=== PATIENT | male | born 1975 | race Caucasian/White ===

== ENCOUNTER 2021-06-22 19:13 | Inpatient (IN) | payer OTHER ==
[~2021-06-22] VITALS: Ht 182.9 cm; Wt 90.4 kg
[~2021-06-22 19:13] MED LIST: ALBU90OI INH; Bactrim 400-801 EACH PO; CEPH500 PO; CLIN150 PO; CLIN300 PO; Cleocin HCl300 MG PO; IBUP600 PO; NAPR500 PO; Naprosyn500 MG PO; RXCLIN PO; SULTRIDS PO; TENO300 PO; TRAM50 PO
[2021-06-22 20:23] LABS: BASOPHILS ABSOLUTE AUTO 0.03 K/mm3 (0.00-0.23); BASOPHILS PERCENT AUTO 1 % (0-2); EOSINOPHILS ABSOLUTE AUTO 0.23 K/mm3 (0.00-0.68); EOSINOPHILS PERCENT AUTO 5 % (0-6); Hematocrit 34.8 % (37.0-53.0); Hemoglobin 10.6 g/dL (13.5-17.5); IMMATURE GRAN ABSOLUTE AUTO 0.01 K/mm3 (0.00-0.10); IMMATURE GRAN PERCENT AUTO 0 % (0-1); LYMPHOCYTES ABSOLUTE AUTO 1.61 K/mm3 (0.84-5.20); LYMPHOCYTES PERCENT AUTO 33 % (21-46); MONOCYTES ABSOLUTE AUTO 0.43 K/mm3 (0.16-1.47); MONOCYTES PERCENT AUTO 9 % (4-13); Mean Corpuscular HGB 20.3 pg (26.0-34.0); Mean Corpuscular HGB Conc 30.5 g/dL (31.5-36.5); Mean Corpuscular Volume 67 fL (80-100); NEUTROPHILS ABSOLUTE AUTO 2.53 K/mm3 (1.96-9.15); NEUTROPHILS PERCENT AUTO 52 % (41-73); Platelet Count 164 K/mm3 (150-400); RDW Coefficient Variation 21.1 % (11.7-14.2); RDW Standard Deviation 48.3 fL (35.1-46.3); Red Blood Cell Count 5.23 M/mm3 (4.30-5.90); White Blood Cell Count 4.84 K/mm3 (4.00-11.30)
[2021-06-22 20:24] LABS: Mean Platelet Volume 10.4 fL (9.1-12.4)
[2021-06-22 20:41] LABS: Alanine Aminotransfer (ALT/SGP 40 U/L (12-78); Albumin, Blood 3.4 g/dL (3.4-5.0); Albumin/Globulin Ratio 0.9 (0.8-1.8); Alk Phos 74 U/L (50-136); Anion Gap 5 mmol/L (6-16); Aspartate Aminotrans (AST/SGOT 37 U/L (12-37); Bilirubin, Total 0.7 mg/dL (0.1-1.0); Blood Urea Nitrogen 19 mg/dL (8-24); Bun/Creatinine Ratio 25.1 (12.0-20.0); CO2, Blood 26 mmol/L (21-32); Calcium, Blood 8.5 mg/dL (8.5-10.1); Chloride, Blood 105 mmol/L (98-108); Creatinine, Blood 0.76 mg/dL (0.60-1.20); Globulin, Blood 3.7 g/dL (2.2-4.0); Glomerular Filtration Rate >60 (60-); Glucose, Blood 97 mg/dL (70-99); Potassium, Blood 3.4 mmol/L (3.5-5.5); Sodium, Blood 136 mmol/L (136-145); Total Protein, Blood 7.1 g/dL (6.4-8.2)
[2021-06-22 22:17] LABS: Source, Urine Clean Catch
[2021-06-22 22:28] LABS: Bilirubin, Urine Neg (Neg); Blood, Urine Neg (Neg); Glucose Qualitative, Urine Neg (Neg); Ketones, Urine Neg (Neg); Leukocyte Esterase, Urine 1+ (Neg); Nitrite, Urine Neg (Neg); Protein, Urine 2+ (Neg); Urobilinogen, Urine 1+ (Normal); pH, Urine 6.5 (5.0-8.0)
[2021-06-22 22:38] LABS: U Amphetamine Screen DETECTED; U Barbituate Screen Not Detected; U Benzodiazapine Screen Not Detected; U Buprenorphine Screen Not Detected; U Cannabinoids Screen Not Detected; U Cocaine Screen Not Detected; U Methadone Screen Not Detected; U Methamphetamine Screen DETECTED; U Opiates Screen Not Detected; U Oxycodone Screen Not Detected; U Phencyclidine Screen Not Detected; U Propoxyphene Screen Not Detected
[2021-06-22 22:39] LABS: Appearance, Urine Clear (Clear); Color, Urine Yellow (P-Yellow)
[2021-06-22 22:40] LABS: Bacteria Few /hpf; Red Blood Cells, Urine Not Seen /hpf (0-2); Squamous Epithelial Cells Few /hpf (Few)
[2021-06-23 05:49] LABS: BASOPHILS ABSOLUTE AUTO 0.04 K/mm3 (0.00-0.23); BASOPHILS PERCENT AUTO 1 % (0-2); EOSINOPHILS ABSOLUTE AUTO 0.24 K/mm3 (0.00-0.68); EOSINOPHILS PERCENT AUTO 5 % (0-6); Hematocrit 35.2 % (37.0-53.0); Hemoglobin 10.4 g/dL (13.5-17.5); IMMATURE GRAN ABSOLUTE AUTO 0.01 K/mm3 (0.00-0.10); IMMATURE GRAN PERCENT AUTO 0 % (0-1); LYMPHOCYTES PERCENT AUTO 37 % (21-46); MONOCYTES ABSOLUTE AUTO 0.45 K/mm3 (0.16-1.47); MONOCYTES PERCENT AUTO 10 % (4-13); Mean Corpuscular HGB Conc 29.5 g/dL (31.5-36.5); Mean Corpuscular Volume 68 fL (80-100); NEUTROPHILS ABSOLUTE AUTO 2.13 K/mm3 (1.96-9.15); NEUTROPHILS PERCENT AUTO 47 % (41-73); Platelet Count 165 K/mm3 (150-400); RDW Coefficient Variation 21.2 % (11.7-14.2); RDW Standard Deviation 49.2 fL (35.1-46.3); White Blood Cell Count 4.57 K/mm3 (4.00-11.30)
[2021-06-23 06:02] LABS: Mean Platelet Volume 10.3 fL (9.1-12.4)
[2021-06-23 06:10] LABS: Anion Gap 5 mmol/L (6-16); Blood Urea Nitrogen 15 mg/dL (8-24); Bun/Creatinine Ratio 20.2 (12.0-20.0); CO2, Blood 26 mmol/L (21-32); Calcium, Blood 8.5 mg/dL (8.5-10.1); Chloride, Blood 107 mmol/L (98-108); Creatinine, Blood 0.74 mg/dL (0.60-1.20); Glomerular Filtration Rate >60 (60-); Glucose, Blood 92 mg/dL (70-99); Potassium, Blood 3.5 mmol/L (3.5-5.5); Sodium, Blood 138 mmol/L (136-145)
[2021-06-23 06:22] LABS: CHOL/HDL RATIO 3.3; Cholesterol 85 mg/dL (50-200); HDL Cholesterol 26 mg/dL (>39); LDL/HDL RATIO 1.8; Low Density Lipoprotein Chol 47 mg/dL (0-110); Triglycerides 58 mg/dL (30-160); Very Low Density Lipoprot Chol 11 mg/dL (6-32)
[2021-06-23 06:32] LABS: Percent Saturation 6.5 % (20.0-50.0)
--- NOTE | 2021-06-23 06:36 | NUR ---
SHIFT SUMMARY PATIENT ARRIVED TO ROOM 332 VIA STRETCHER AT 0115. HE IS ALERT AND ORIENTED X3, IS CONFUSED AND IMPULSIVE. COMPLAINS OF HIS RIGHT ARM HAVING BURNING PAIN. REQUIRES ONE PERSON ASSIST TO THE RESTROOM DUE TO LEFT SIDED WEAKNESS. BED IN LOWEST POSITION WITH WHEELS LOCKED AND ALARM ON. CALL LIGHT WITHIN REACH. REPORT GIVEN TO ONCOMING RN.
--- NOTE | 2021-06-23 14:34 | NUR ---
Per Dr. Kebede, patient choosing to leave AMA. By Dr. Kebede request, I scheduled Carter Mcgill for a hospital followup with Fabián. Appointment scheduled for Sunday, June 27, 2021 at 03:30 PM. I went to visit the patient in his room, he was working with the occupational therapist using a front wheeled walker. Patient agreeable to time and date of scheduled hospital follow up appointment. Also discussed his referrals and verified that his current cell phone number [phone] is a good contact number. I offered to order the patient a front wheeled walker before the patient leaves, he is agreeable to this. I contacted Chucky with [employer], who stated the walker would be delievered to the patient shortly. I also explained that home health will be ordered by Dr. Kebede, and that [facility] will be contacting him to set that up. Patient agreeable to services. His Girlfriend will be picking him up soon.
--- NOTE | 2021-06-23 16:48 | NUR ---
PT AWAKE AT START OF SHIFT, LYING HF WATCHING TV. PT WANTING TO GO HOME RIGHT AWAY. DR FRY TO TO SEE PT AND DISCUSS PLAN OF CARE. MRI OF HEAD AND SPINE TO BE DONE FIRST. PT TAKEN DOWN TO IMAGING VIA W/C AND RETURNED. PT THEN WANTING TO GO AMA. O/T HERE TO SEE PT. DR FRY ENCOURAGED PT TO WORK WITH O/T FIRST AND LEARN SOME THINGS THAT HE COULD USE AT HOME. PT WITH L SIDED WEAKNESS AND R ARM N/T AND BURNING. PT ABLE TO WORK WITH THERAPY AND AGREED THAT HE WOULD BENEFIT HAVING A FWW AT HOME. REPAIRER ENGINE PRODUCTION IN TO SEE PT AND DISCUSS PLAN OF CARE. REPAIRER ENGINE PRODUCTION ABLE TO OBTAIN A FWW AND HAVE IT DELIVERED HERE FOR PT TO TAKE HOME AT D/C. F/U APPOINTMENTS MADE FOR PT TO GO TO WELL BY C/M. PT CONTINUED TO INSIST ON GOING AMA. DR FRY AWARE AND TRIED TO ENCOURAGE PT TO STAY. PT REFUSING. RAMIN ORTEGA, DISCUSSED AMA SHEET WITH PT, WHO WISHED TO SIGN FORM. PT CALLED S/O TO COME AND TAKE HIM HOME. S/O ASSISTED PT OUT VIA W/C.
== END 2021-06-23 14:55 | disposition left against medical advice (07) | DRG 552 ==
LOC: ER 19:13 → MEDS 23:39 → ER 06-23 01:10 → MEDS 06-23 01:15
PROVIDERS: Emergency Medicine; Physician Assistant; Student in an Organized Health Care Education/Training Program; ADMIT Internal Medicine
DX: M48.02 Spinal stenosis, cervical region (principal); G93.40 Encephalopathy, unspecified; E87.6 Hypokalemia; Z21 Asymptomatic human immunodeficiency virus [HIV] infection status; F15.10 Other stimulant abuse, uncomplicated; D64.9 Anemia, unspecified; B19.20 Unspecified viral hepatitis C without hepatic coma; Z86.718 Personal history of other venous thrombosis and embolism; Z91.14 Patient's other noncompliance with medication regimen; Z86.73 Personal history of transient ischemic attack (TIA), and cerebral infarction without residual deficits; Z88.0 Allergy status to penicillin; Z98.890 Other specified postprocedural states; F17.210 Nicotine dependence, cigarettes, uncomplicated; Z66 Do not resuscitate; D63.8 Anemia in other chronic diseases classified elsewhere
CPT/HCPCS: 36415; 51701; 70450; 70551; 71046; 72125; 72141; 80048; 80053; 80061; 81001; 82728; 83540; 83550; 84484; 85025; 87086; 90686; 92610; 93005; 93010; 97110; 97112; 97165; 97535; 99285-25; A9270; G0008; J1650; J3480; J7030

== ENCOUNTER 2021-08-03 03:06 | Emergency (ER) | payer OTHER ==
[~2021-08-03] VITALS: Ht 182.9 cm; Wt 90.7 kg
[2021-08-03 04:18] LABS: BASOPHILS ABSOLUTE AUTO 0.06 K/mm3 (0.00-0.23); BASOPHILS PERCENT AUTO 1 % (0-2); EOSINOPHILS ABSOLUTE AUTO 0.32 K/mm3 (0.00-0.68); EOSINOPHILS PERCENT AUTO 7 % (0-6); Hematocrit 43.1 % (37.0-53.0); IMMATURE GRAN ABSOLUTE AUTO 0.01 K/mm3 (0.00-0.10); IMMATURE GRAN PERCENT AUTO 0 % (0-1); LYMPHOCYTES PERCENT AUTO 39 % (21-46); MONOCYTES ABSOLUTE AUTO 0.37 K/mm3 (0.16-1.47); MONOCYTES PERCENT AUTO 8 % (4-13); Mean Corpuscular HGB 22.4 pg (26.0-34.0); Mean Corpuscular HGB Conc 30.2 g/dL (31.5-36.5); Mean Corpuscular Volume 74 fL (80-100); NEUTROPHILS ABSOLUTE AUTO 1.94 K/mm3 (1.96-9.15); NEUTROPHILS PERCENT AUTO 44 % (41-73); Platelet Count 174 K/mm3 (150-400); RDW Coefficient Variation 27.7 % (11.7-14.2); RDW Standard Deviation 72.5 fL (35.1-46.3)
[2021-08-03 04:19] LABS: Mean Platelet Volume 9.8 fL (9.1-12.4)
[2021-08-03 04:29] LABS: Anion Gap 4 mmol/L (6-16); Blood Urea Nitrogen 17 mg/dL (8-24); Bun/Creatinine Ratio 26.9 (12.0-20.0); C-REACTIVE PROTEIN, EXT RANGE <0.290 mg/dL (0.000-0.300); CO2, Blood 29 mmol/L (21-32); Calcium, Blood 8.8 mg/dL (8.5-10.1); Chloride, Blood 105 mmol/L (98-108); Creatinine, Blood 0.63 mg/dL (0.60-1.20); Glomerular Filtration Rate >60 (60-); Glucose, Blood 112 mg/dL (70-99); Potassium, Blood 3.6 mmol/L (3.5-5.5); Sodium, Blood 138 mmol/L (136-145)
== END 2021-08-03 06:23 | disposition home or self-care (01) ==
LOC: ER 03:06
PROVIDERS: Student in an Organized Health Care Education/Training Program
DX: S93.402A Sprain of unspecified ligament of left ankle, initial encounter (principal); B20 Human immunodeficiency virus [HIV] disease; Z88.0 Allergy status to penicillin; F17.200 Nicotine dependence, unspecified, uncomplicated; X58.XXXA Exposure to other specified factors, initial encounter
CPT/HCPCS: 73610; 80048; 85025; 85651; 86140; 93971; 99282; A9270; J7030

== ENCOUNTER 2021-08-29 10:56 | Inpatient (IN) | payer OTHER ==
[~2021-08-29] VITALS: Ht 182.9 cm; Wt 79.4 kg
[~2021-08-29 10:56] MED LIST changes: +AMLODIPINE BESYL5 MG PO; +BACL10 PO; +BIKTARVY 50-201 EAC1 PO; +BUPRENORPHINE1 EAC9 TD; +FAMO20 PO; +HYDCHL25 PO; +HYDHCL25 PO; +LOSA25 PO; +LOSARTAN-HCTZ1 EACH PO; +Macrobid 100 M100 MG PO; +OXYB5 PO; +SENN187 PO; +TIZA4 PO; +ZOLOFT25 MG PO
[2021-08-29 12:48] LABS: BASOPHILS ABSOLUTE AUTO 0.05 K/mm3 (0.00-0.23); BASOPHILS PERCENT AUTO 1 % (0-2); EOSINOPHILS ABSOLUTE AUTO 0.06 K/mm3 (0.00-0.68); EOSINOPHILS PERCENT AUTO 1 % (0-6); Hemoglobin 13.6 g/dL (13.5-17.5); IMMATURE GRAN ABSOLUTE AUTO 0.01 K/mm3 (0.00-0.10); IMMATURE GRAN PERCENT AUTO 0 % (0-1); LYMPHOCYTES PERCENT AUTO 21 % (21-46); MONOCYTES ABSOLUTE AUTO 0.46 K/mm3 (0.16-1.47); MONOCYTES PERCENT AUTO 7 % (4-13); NEUTROPHILS ABSOLUTE AUTO 4.74 K/mm3 (1.96-9.15); NEUTROPHILS PERCENT AUTO 71 % (41-73); Platelet Count 238 K/mm3 (150-400); White Blood Cell Count 6.72 K/mm3 (4.00-11.30)
[2021-08-29 13:18] LABS: Hematocrit 42.1 % (37.0-53.0); Mean Corpuscular HGB 24.7 pg (26.0-34.0); Mean Corpuscular HGB Conc 32.3 g/dL (31.5-36.5); Mean Corpuscular Volume 77 fL (80-100)
[2021-08-29 13:38] LABS: Alanine Aminotransfer (ALT/SGP 66 U/L (12-78); Albumin, Blood 3.7 g/dL (3.4-5.0); Albumin/Globulin Ratio 0.9 (0.8-1.8); Alk Phos 85 U/L (50-136); Anion Gap 10 mmol/L (6-16); Aspartate Aminotrans (AST/SGOT 73 U/L (12-37); Bilirubin, Total 0.8 mg/dL (0.1-1.0); Blood Urea Nitrogen 43 mg/dL (8-24); Bun/Creatinine Ratio 18.1 (12.0-20.0); CO2, Blood 25 mmol/L (21-32); Calcium, Blood 10.4 mg/dL (8.5-10.1); Chloride, Blood 100 mmol/L (98-108); Creatinine, Blood 2.38 mg/dL (0.60-1.20); Ethanol (Alcohol), Blood, Med <3 mg/dL; Globulin, Blood 4.3 g/dL (2.2-4.0); Glomerular Filtration Rate 30 (60-); Glucose, Blood 104 mg/dL (70-99); Potassium, Blood 3.9 mmol/L (3.5-5.5); Salicylate 2.5 mg/dL (2.8-20.0); Sodium, Blood 135 mmol/L (136-145)
[2021-08-29 13:44] LABS: Acetaminophen, Random <2.0 ug/mL (10.0-30.0)
[2021-08-29] MEDS ORDERED: MIRTAZAPINE7.5 M1 PO (15:04)
--- NOTE | 2021-08-29 16:30 | NUR ---
SI Assessment Pt expressing that he no longer has thoughts of hurting himself despite previous assessment in ED. Evaluated by in ER, 1:1 sitter orders to be d/c'd. Will continue frequent rounding to ensure pt safety.
--- NOTE | 2021-08-29 16:35 | NUR ---
Update Unable to complete med rec and admission hx d/t pt unable to answer questions. Attempted to contact family on file, no answer. Will notify NOC CN and receiving RN.
--- NOTE | 2021-08-29 18:19 | NUR ---
Shift Summary Received pt from ER. Pt remains A&O x4, denies any SI at this time. VSS. Afebrile. C/o head pain- Tylenol x1. Incontinent with AUO. No BM. Frequent rounds to ensure pt safety. Repositioned q2hrs and pressure points offloaded to prevent pressure ulcers. No apparent distress at this time. Will continue to monitor until transfer of care to oncoming RN.
[2021-08-29 23:35] LABS: Source, Urine Condom Cath
[2021-08-29 23:41] LABS: Blood, Urine Neg (Neg); Color, Urine Yellow (P-Yellow); Glucose Qualitative, Urine Neg (Neg); Ketones, Urine 2+ (Neg); Leukocyte Esterase, Urine Neg (Neg); Nitrite, Urine Neg (Neg); Protein, Urine 2+ (Neg); Specific Gravity, Urine 1.025 (1.003-1.022); Urobilinogen, Urine 1+ (Normal)
[2021-08-29 23:49] LABS: Bilirubin, Urine 1+ (Neg)
[2021-08-29 23:50] LABS: Appearance, Urine Hazy (Clear)
[2021-08-29 23:52] LABS: Bacteria Many /hpf; Red Blood Cells, Urine Not Seen /hpf (0-2); Squamous Epithelial Cells Few /hpf (Few)
[2021-08-30 00:48] LABS: U Amphetamine Screen DETECTED; U Barbituate Screen Not Detected; U Benzodiazapine Screen Not Detected; U Buprenorphine Screen DETECTED; U Cannabinoids Screen Not Detected; U Cocaine Screen Not Detected; U Methadone Screen Not Detected; U Methamphetamine Screen DETECTED; U Opiates Screen Not Detected; U Oxycodone Screen Not Detected; U Phencyclidine Screen Not Detected; U Propoxyphene Screen Not Detected
[2021-08-30 04:27] LABS: BASOPHILS ABSOLUTE AUTO 0.05 K/mm3 (0.00-0.23); BASOPHILS PERCENT AUTO 1 % (0-2); EOSINOPHILS ABSOLUTE AUTO 0.11 K/mm3 (0.00-0.68); EOSINOPHILS PERCENT AUTO 2 % (0-6); Hematocrit 38.7 % (37.0-53.0); Hemoglobin 12.6 g/dL (13.5-17.5); IMMATURE GRAN ABSOLUTE AUTO 0.02 K/mm3 (0.00-0.10); IMMATURE GRAN PERCENT AUTO 0 % (0-1); LYMPHOCYTES ABSOLUTE AUTO 2.37 K/mm3 (0.84-5.20); LYMPHOCYTES PERCENT AUTO 34 % (21-46); MONOCYTES ABSOLUTE AUTO 0.56 K/mm3 (0.16-1.47); MONOCYTES PERCENT AUTO 8 % (4-13); Mean Corpuscular HGB Conc 32.6 g/dL (31.5-36.5); Mean Corpuscular Volume 77 fL (80-100); Mean Platelet Volume 10.4 fL (9.1-12.4); NEUTROPHILS ABSOLUTE AUTO 3.89 K/mm3 (1.96-9.15); NEUTROPHILS PERCENT AUTO 56 % (41-73); Platelet Count 246 K/mm3 (150-400); RDW Standard Deviation 67.7 fL (35.1-46.3); Red Blood Cell Count 5.05 M/mm3 (4.30-5.90)
[2021-08-30 04:49] LABS: Albumin, Blood 3.5 g/dL (3.4-5.0); Albumin/Globulin Ratio 0.9 (0.8-1.8); Bilirubin, Total 0.9 mg/dL (0.1-1.0); Bun/Creatinine Ratio 21.9 (12.0-20.0); Calcium, Blood 9.8 mg/dL (8.5-10.1); Creatinine, Blood 2.24 mg/dL (0.60-1.20); Globulin, Blood 3.8 g/dL (2.2-4.0); Total Protein, Blood 7.3 g/dL (6.4-8.2)
--- NOTE | 2021-08-30 06:10 | NUR ---
SHIFT SUMMARY ASSUMED CARE OF PT AT 1900. PT IS ALERT BUT NOT ORIENTED TO ANYTHING BUT HIS . PT WILL ONLY SPEAK A COUPLE WORDED SENTENCES. PT WAS NOT ABLE TO ANSWER ANY ORIENTATION QUESTIONS. PT WHOLE BODY IS STIFF AND RIGIDED. L ARM CONTRACTED. PT ABLE TO BEND R KNEE BUT NOT L. PT IS A 2P ROLL IN BED. PT WAS INCONTIENT T/O THE NIGHT. PT STATED 'YES' TO BEING IN PAIN, MEDICATED PER EMAR FOR MUSCLE SPASMS.
--- NOTE | 2021-08-30 11:15 | NUR ---
Patient is lying in bed and alert. Patient answers questions with quite a delay and in one or two word sentences. During my visit he mostly requests sips of water, which I supplied and then had to provide more becasue he finished off his cup. He said, "Yes" and nodded affirmingly when asked if I could say a prayer for him. I gladly did so and pt said, "Amen." I continued to assist pt with sips of water, a calming presence and words of encouragement. Pt responds well and shows signs of increased peace. I will continue to remain available to pt and family.
[2021-08-30 12:48] LABS: International Normalized Ratio 1.1; Prothrombin Time Results 11.5 Sec (9.7-11.5)
[2021-08-30 12:50] LABS: Anion Gap 8 mmol/L (6-16); Blood Urea Nitrogen 47 mg/dL (8-24); C-REACTIVE PROTEIN, EXT RANGE <0.290 mg/dL (0.000-0.300); CO2, Blood 23 mmol/L (21-32); Calcium, Blood 9.8 mg/dL (8.5-10.1); Chloride, Blood 105 mmol/L (98-108); Creatinine, Blood 1.81 mg/dL (0.60-1.20); Glomerular Filtration Rate 41 (60-); Glucose, Blood 92 mg/dL (70-99); Magnesium, Blood 1.9 mg/dL (1.6-2.4); Potassium, Blood 3.9 mmol/L (3.5-5.5); Sodium, Blood 136 mmol/L (136-145)
--- NOTE | 2021-08-30 16:40 | NUR ---
Update Notified MD LP still pending, pt becoming increasingly more rigid. Tentatively IR or anesthesia to complete. MD to reach out to IR, anesthesia, and driver engineer directly to resolve. Will continue to monitor.
--- NOTE | 2021-08-30 17:10 | NUR ---
Shift Summary Pt resting comfortably. VSS. Afebrile. No s/s of pain. CIWA assessed q4hrs- Ativan x1 administered. Incontinent with AUO. No BM. Poor appetite, continues to drink appropriate fluids. Nephro consulted d/t LINDA- IVF rate adjusted. Pending LP d/t increased muscle rigidity- MD aware of delay. Frequent rounds to ensure pt safety. Repositioned q2hrs and pressure points offloaded to prevent pressure ulcers. No apparent distress noted at this time. Will continue to monitor until transfer of care to oncoming RN.
[2021-08-31 03:50] LABS: Hematocrit 38.4 % (37.0-53.0); Hemoglobin 12.2 g/dL (13.5-17.5)
[2021-08-31 04:09] LABS: Albumin, Blood 3.3 g/dL (3.4-5.0); Anion Gap 8 mmol/L (6-16); Blood Urea Nitrogen 39 mg/dL (8-24); Bun/Creatinine Ratio 34.5 (12.0-20.0); CO2, Blood 24 mmol/L (21-32); Calcium, Blood 9.8 mg/dL (8.5-10.1); Chloride, Blood 107 mmol/L (98-108); Creatinine, Blood 1.13 mg/dL (0.60-1.20); Glomerular Filtration Rate >60 (60-); Glucose, Blood 89 mg/dL (70-99); Magnesium, Blood 1.9 mg/dL (1.6-2.4); Phosphorus, Blood 2.9 mg/dL (2.5-4.9); Potassium, Blood 3.8 mmol/L (3.5-5.5); Sodium, Blood 139 mmol/L (136-145)
--- NOTE | 2021-08-31 05:58 | NUR ---
SHIFT SUMMARY ASSUMED CARE OF PT AT 1900. PT IS LETHARGIC TODAY. PT WILL OPEN HIS EYES TO PAINFUL STIMULUS BUT WAS MOSTLY SLEEPING. HEART SOUNDS REGULAR BUT TACHY. LUNG SOUNDS DIMINISHED. PT WAS INCONTIENT OF URINE. PT BODY IS STILL VERY RIDGED BUT PT CAN MOVE LIMBS WHEN HE WANTS TO. PT TENSES UP WHEN ROLLED TO BE CHANGED. ER DOCTOR CALLED AT 2100 TO ASK IF PRIMARY CARE DOCTOR HAD STARTED ABX AND GOTTEN RECENT HEAD CT BEFORE HE DOES THE LUMBAR PUNCTURE. PRIMARY CARE DOC CALLED AND ASKED IF SHE WOULD LIKE TO DO A CT TO SEE IF PT COULD GET THE PROCEDURE TONIGHT. SHE SAID YES. BY THE TIME PT WAS BACK FROM CT THE ER DOCTOR SAID THAT HE WAS GOING HOME AT 10 AND PRIMARY CARE DOCTOR WOULD NEED TO CALL THE ONCOMING ER DOCTOR IF SHE WANTED THE SCAN DONE TONIGHT. DISCUSSED WITH CHARGE NURSE AND WHO AGREED TOUPDATE DOCTOR IN AM. RESULTS OF SCAN IN EMAR AND IN FRONT OF CHART. DR GONZALEZ SAW PT THIS AM AT 0500. STATED TO SLOW FLUIDS DOWN TO 50ML/HR AND STOP THEM AT NOON. LISA STATED THAT KIDNEYS ARE DOING MUCH BETTER TODAY.
--- NOTE | 2021-08-31 12:02 | NUR ---
IV FLUIDS STOPPED AT [address] GONZALEZ[address]
--- NOTE | 2021-08-31 16:15 | NUR ---
NO ACUTE CHANGES THIS SHIFT, VSS. PT ON ROOM AIR, TOLERATING WELL. PT UNABLE TO FOLLOW COMMANDS, WILL SOMETIMES RESPOND TO VERBAL STIMULUS. PT WAS ABLE TO STATE HISH LAST NAME SEVERAL TIMES THROUGH THE SHIFT, AT ONE TIME WHEN ASKED TO STATE WHERE HE WAS WAS HE WAS ABLE TO SAY "ARIK-" AND WHEN ASKED WHERE HE LIVED HE SAID "[place]." PT AT TIMES WOULD CALL OUT "WATER." BEDSIDE SWALLOW SCREEN CONDUCTED, FLUID RAN OUT OF THE PATIENT'S MOUTH AND PT STARTED COUGHING. NO ADDITIONAL PO INTAKE OFFERED. ORAL CARE DONE THROUGHOUT SHIFT. PT REPOSITIONED AND BRIEFS CHANGED THROUGHOUT SHIFT. PT CONTINUES TO SWEAT PROFUSELY. PT WOULD AT TIMES STIFFEN LIMBS, AND HAVE SPELLS OF SHAKING, DR. MINAYA PRESENT AND AWARE.
--- NOTE | 2021-08-31 16:25 | NUR ---
REPORT GIVEN TO RULA ORTEGA ON MEDICAL.
--- NOTE | 2021-08-31 16:39 | NUR ---
pt arrived to 227 via bed, eyes closed, not really responding to being moved. call light in reach.
--- NOTE | 2021-08-31 18:12 | NUR ---
pt continues to not respond to verbal, laying in bed with eyes closed, no changes since being on medical. call light in reach.
[2021-08-31 21:56] LABS: C-Reactive Protein, High Sens. 0.789 mg/L (0.000-3.000); Creatine Kinase MB 3.2 ng/mL (0.0-3.6)
--- NOTE | 2021-08-31 22:32 | NUR ---
PATIENT NONRESPONIVE AT SHIFT CHANGE, NOT FOLLOWING COMMANDS. PER OFFGOING NURSE THIS IS HOW HE ARRIVED FROM PCU AT APPROX 1600. PATIENT WITH INTERMITTENT MOANS BUT WILL NOT OPEN EYES, ANSWER QUESTIONS, OR FOLLOW COMMANDS. LEFT ARM APPEARS CONTRACTED, FLEXED ACROSS CHEST WITH LROM. RIGHT LEG WITH TREMORS. PATIENT WITH INTERMITTENT DECORTICUS POSTURING OF RIGHT FOOT, RIGHT ARM, AND RIGHT HAND/WRIST. VITALS TAKEN WNL EXCEPT TACHYCARDIA 120S. APICAL PULSE 130. PERRLA. MD CONTACTED AND AT BEDSIDE FOR EVALUATION. LAB ORDERS OBTAINED. PATIENT WITH WORSENGING SYMPTOMS NOW DIAPHORETIC, ARCHING BACK, CLEANCHING TEETH, AND HOLDING BREATH. PATIENT UNABLE TO ANSWER QUESTIONS. CBG 77. MD AND LAB AT BEDSIDE. NEW ORDERS OBTAINED. PATIENT TO TRANSFER TO PCU. MOTHER RADHA CONTACTED AND ADVISED OF CHANGE IN CONDITION AND TRANSFER. REPORT GIVEN TO PCU NURSEBRIAN.
[2021-08-31 23:37] LABS: Free Thyroxine 1.03 ng/dL (0.70-1.60); Thyroid Stimulating Hormone 0.641 uIU/mL (0.360-4.800)
[2021-09-01 02:01] LABS: Source, Urine Foley catheter
[2021-09-01 02:04] LABS: Bilirubin, Urine Neg (Neg); Blood, Urine Neg (Neg); Glucose Qualitative, Urine Neg (Neg); Ketones, Urine 4+ (Neg); Leukocyte Esterase, Urine Neg (Neg); Nitrite, Urine Neg (Neg); Protein, Urine 2+ (Neg); Urobilinogen, Urine 2+ (Normal)
[2021-09-01 02:12] LABS: Amorphous Light (0-Heavy); Appearance, Urine Hazy (Clear); Bacteria Rare /hpf; Color, Urine Yellow (P-Yellow); Mucus Light (0-Heavy); Red Blood Cells, Urine Not Seen /hpf (0-2); Squamous Epithelial Cells Few /hpf (Few); White Blood Cells, Urine Rare /hpf (0-5)
[2021-09-01 03:45] LABS: BASOPHILS ABSOLUTE AUTO 0.04 K/mm3 (0.00-0.23); BASOPHILS PERCENT AUTO 1 % (0-2); EOSINOPHILS ABSOLUTE AUTO 0.03 K/mm3 (0.00-0.68); EOSINOPHILS PERCENT AUTO 1 % (0-6); Hemoglobin 12.1 g/dL (13.5-17.5); IMMATURE GRAN ABSOLUTE AUTO 0.01 K/mm3 (0.00-0.10); IMMATURE GRAN PERCENT AUTO 0 % (0-1); LYMPHOCYTES ABSOLUTE AUTO 2.03 K/mm3 (0.84-5.20); LYMPHOCYTES PERCENT AUTO 41 % (21-46); MONOCYTES ABSOLUTE AUTO 0.61 K/mm3 (0.16-1.47); MONOCYTES PERCENT AUTO 12 % (4-13); Mean Platelet Volume 9.8 fL (9.1-12.4); NEUTROPHILS ABSOLUTE AUTO 2.24 K/mm3 (1.96-9.15); NEUTROPHILS PERCENT AUTO 45 % (41-73); Platelet Count 233 K/mm3 (150-400); White Blood Cell Count 4.96 K/mm3 (4.00-11.30)
[2021-09-01 03:49] LABS: Hematocrit 37.5 % (37.0-53.0); Mean Corpuscular HGB 24.9 pg (26.0-34.0); Mean Corpuscular HGB Conc 32.3 g/dL (31.5-36.5); Mean Corpuscular Volume 77 fL (80-100); Red Blood Cell Count 4.85 M/mm3 (4.30-5.90)
[2021-09-01 04:04] LABS: Alanine Aminotransfer (ALT/SGP 63 U/L (12-78); Albumin, Blood 3.3 g/dL (3.4-5.0); Albumin/Globulin Ratio 0.9 (0.8-1.8); Alk Phos 62 U/L (50-136); Anion Gap 8 mmol/L (6-16); Aspartate Aminotrans (AST/SGOT 61 U/L (12-37); Blood Urea Nitrogen 35 mg/dL (8-24); Bun/Creatinine Ratio 42.9 (12.0-20.0); CO2, Blood 25 mmol/L (21-32); Calcium, Blood 9.8 mg/dL (8.5-10.1); Chloride, Blood 113 mmol/L (98-108); Creatinine, Blood 0.82 mg/dL (0.60-1.20); Globulin, Blood 3.7 g/dL (2.2-4.0); Glomerular Filtration Rate >60 (60-); Glucose, Blood 104 mg/dL (70-99); Magnesium, Blood 1.7 mg/dL (1.6-2.4); Phosphorus, Blood 2.2 mg/dL (2.5-4.9); Potassium, Blood 3.4 mmol/L (3.5-5.5); Sodium, Blood 146 mmol/L (136-145)
[2021-09-01 08:43] LABS: Creatine Kinase MB 2.5 ng/mL (0.0-3.6); Uric Acid, Blood 8.1 mg/dL (3.5-7.2)
--- NOTE | 2021-09-01 13:04 | NUR ---
CARE ASSUMPTION THIS RN ASSUMED CARE AT 0700. PATIENT IS NONRESPONSIVE, BESDIES CALLING OUT FOR WATER AT TIMES. PATIENT CAN FOLLOW THE COMMAND OF OPENING HIS MOUTH FOR A WATER SPONGE, AND RELAXING, BUT DOESN'T FOLLOW OTHER COMMANDS. PATIENT PUPILS PERRLA. PATIENT IS TELE SINUS TACH 110S. PATIENT LUNG SOUNDS CLEAR. PATIENT ABD IS SOFT NONTENDER. PATIENT HAD AN NG TUBE PLACED AT APPROX 0930 THIS AM BY THE STUDENT RN WITH JOSE Lau RN AT BESIDE. PATIENT HAS JOSEPH CATH IN PLACE DRAINING WITH GRAVITY. PATIENT VSS. PATIENT HAS A FEVER, PATIENT RECEIVED TYLENOL FOR FEVER. PATIENT HAD A HIGH BLOOD PRESSURE AND RECEIVED IV HYDRALAZINE. PATIENT BP AND FEVER HAVE COME DOWN. PATIENT REPOSITIONING EVERY 2HOURS. ORAL CARE DONE. CALL LIGHT IS WITHIN REACH. WILL CONTINUE TO MONITOR AND PROVIDE CARE.
--- NOTE | 2021-09-01 17:59 | NUR ---
SHIFT SUMMARY PATIENT HAS NO NEURO CHANGES THIS SHIFT. VSS. PATIENT HAS HAD A FEVER ALL DAY FROM 100.4-100.6. PATIENT RECEIVED TYLENOL FOR THE FEVER. PATIENT HAS TUBE FEEDING GOING AT 25ML/HR AND GOAL RATE IS 55ML/HR. PATIENT HAS BEEN REPOSITIONED THROUGHOUT THE DAY AND RECEIVED ORAL CARE. JOSEPH IN PLACE DRAINING WITH GRAVITY. NO ACUTE CHANGES THIS SHIFT. WILL CONTINUE TO MONITOR AND PROVIDE CARE UNTIL HAND OFF WITH NEXT SHIFT.
--- NOTE | 2021-09-01 20:44 | NUR ---
CALLED DR MENDOZA TO CHANGE PO MEDS PER TUBE.
[2021-09-02 04:24] LABS: BASOPHILS ABSOLUTE AUTO 0.04 K/mm3 (0.00-0.23); BASOPHILS PERCENT AUTO 1 % (0-2); EOSINOPHILS ABSOLUTE AUTO 0.02 K/mm3 (0.00-0.68); EOSINOPHILS PERCENT AUTO 0 % (0-6); Hematocrit 39.5 % (37.0-53.0); Hemoglobin 12.8 g/dL (13.5-17.5); IMMATURE GRAN ABSOLUTE AUTO 0.01 K/mm3 (0.00-0.10); IMMATURE GRAN PERCENT AUTO 0 % (0-1); LYMPHOCYTES ABSOLUTE AUTO 2.17 K/mm3 (0.84-5.20); LYMPHOCYTES PERCENT AUTO 37 % (21-46); MONOCYTES ABSOLUTE AUTO 0.72 K/mm3 (0.16-1.47); MONOCYTES PERCENT AUTO 12 % (4-13); Mean Corpuscular HGB 25.1 pg (26.0-34.0); Mean Corpuscular HGB Conc 32.4 g/dL (31.5-36.5); Mean Corpuscular Volume 78 fL (80-100); Mean Platelet Volume 9.5 fL (9.1-12.4); NEUTROPHILS ABSOLUTE AUTO 2.94 K/mm3 (1.96-9.15); NEUTROPHILS PERCENT AUTO 50 % (41-73); Platelet Count 244 K/mm3 (150-400); RDW Coefficient Variation 24.4 % (11.7-14.2); RDW Standard Deviation 65.5 fL (35.1-46.3); Red Blood Cell Count 5.09 M/mm3 (4.30-5.90)
[2021-09-02 04:54] LABS: Alanine Aminotransfer (ALT/SGP 60 U/L (12-78); Albumin, Blood 3.2 g/dL (3.4-5.0); Albumin/Globulin Ratio 0.8 (0.8-1.8); Alk Phos 60 U/L (50-136); Anion Gap 6 mmol/L (6-16); Aspartate Aminotrans (AST/SGOT 49 U/L (12-37); Blood Urea Nitrogen 33 mg/dL (8-24); CO2, Blood 26 mmol/L (21-32); CPK Creatine Kinase 214 U/L (39-308); Calcium, Blood 9.6 mg/dL (8.5-10.1); Chloride, Blood 114 mmol/L (98-108); Creatinine, Blood 0.64 mg/dL (0.60-1.20); Globulin, Blood 3.8 g/dL (2.2-4.0); Glomerular Filtration Rate >60 (60-); Glucose, Blood 125 mg/dL (70-99); Magnesium, Blood 1.7 mg/dL (1.6-2.4); Phosphorus, Blood 2.1 mg/dL (2.5-4.9); Potassium, Blood 3.7 mmol/L (3.5-5.5); Sodium, Blood 146 mmol/L (136-145)
--- NOTE | 2021-09-02 06:33 | NUR ---
SHIFT SUMMARY PT IS NOT ALERT. CALLS OUT WANTS WATER OR "MOM" AT TIMES. PT NOT OPENING EYES OR RESPONDING TO VERBAL STIMULI AND TOTAL CARE AT THIS TIME. BP IS ELEVATED AND TEMP HAS REMAINED 99.0 TO 100.4. PT PULLING AT JOSEPH AND TELE LEADS T/O THE NIGHT. TUBE FEED IS NOW AT GOAL OF 55/HR. BED ALARM ACTIVE. JOSEPH IN PLACE AND DRAINING TO GRAVITY.
--- NOTE | 2021-09-02 11:35 | NUR ---
ASSUME CARE OF PATIENT AT 0700. PATIENT A&O TO SELF. PATIENT CALLING OUT ASKING FOR WATER. FEBRILE 99.9. MEDICATED WITH TYLENOR PER EMAR. AROUND 1030 PATIENT PULLED NG TUBE OUT. RIGHT SOFT WRIST RESTRAINT REMAIN IN PLACE WHEN THE INCIDENT HAPPENED, BUT STILL MANAGE TO PULL IT OUT. NOTIFIED DR PITTS. ORDER TO REPLACED NG TUBE. BEDBATH & ORAL CARE PROVIDED. REPOSITIONED Q2 HOURS. BED IN LOWEST POSITION AND CALL LIGHT IN REACH.
--- NOTE | 2021-09-02 17:57 | NUR ---
SHIFT SUMMARY PATIENT HAS BEEN MORE ALERT TO SELF. PATIENT HAS BEEN CALLING OUT THROUGHOUT THIS SHIFT ASKING FOR WATER. SPEECH THERAPIST CAME IN TODAY FOR EVAL. PATIENT STILL HAVING DIFFICULTY SWALLOWING WITH WATER, BUT ACCORDING TO ST IT'S OKAY TO GIVE APPLE SAUCE CRASHED WITH MEDS. PATIENT PULLED OUT HIS NG TUBE THIS AM. NG TUBE WAS PLACED BACK AND VERIFIED WITH XRAY FOR THE PLACEMENT. FEEDING TUBE IS CURRENTLY RUNNING AT A GOAL RATE OF 55 MLS/HR WITH 50MLS OF FREE WATER FLUSHED Q4 HRS. PATIENT SOFT WRIST RESTRAINT STILL IN PLACED TO PROTECT THE LINES AND TUBING. PATIENT PULLED TELE OFF MULTIPLE TIMES THROUGHOUT THE SHIFT. NO BM FOR THIS SHIFT, BUT HAS BEEN PASSING GAS AND USED BEDPAN X1 WITH NO RESULT. PATIENT WAS TAKEN OFF DROPLET PRECAUTION VERIFIED PER DR. PITTS. PATIENT HAS BEEN REPOSITIONED Q2 HRS. EGG CRATE IN PLACED FOR COMFORT AND PREVENT SKIN BREAKDOWN. BED IN LOWEST POSITION AND CALL LIGHT WITHIN REACH. WILL CONTINUE TO MONITOR AND GIVE REPORT TO ONCOMING RN.
[2021-09-03 04:55] LABS: BASOPHILS ABSOLUTE AUTO 0.05 K/mm3 (0.00-0.23); BASOPHILS PERCENT AUTO 1 % (0-2); EOSINOPHILS ABSOLUTE AUTO 0.17 K/mm3 (0.00-0.68); EOSINOPHILS PERCENT AUTO 3 % (0-6); Hematocrit 43.6 % (37.0-53.0); Hemoglobin 13.7 g/dL (13.5-17.5); IMMATURE GRAN ABSOLUTE AUTO 0.01 K/mm3 (0.00-0.10); IMMATURE GRAN PERCENT AUTO 0 % (0-1); LYMPHOCYTES ABSOLUTE AUTO 1.94 K/mm3 (0.84-5.20); LYMPHOCYTES PERCENT AUTO 34 % (21-46); MONOCYTES ABSOLUTE AUTO 0.43 K/mm3 (0.16-1.47); MONOCYTES PERCENT AUTO 8 % (4-13); Mean Corpuscular HGB 24.8 pg (26.0-34.0); Mean Corpuscular HGB Conc 31.4 g/dL (31.5-36.5); Mean Corpuscular Volume 79 fL (80-100); Mean Platelet Volume 9.7 fL (9.1-12.4); NEUTROPHILS ABSOLUTE AUTO 3.04 K/mm3 (1.96-9.15); NEUTROPHILS PERCENT AUTO 54 % (41-73); Platelet Count 234 K/mm3 (150-400); RDW Coefficient Variation 24.4 % (11.7-14.2); RDW Standard Deviation 66.2 fL (35.1-46.3); Red Blood Cell Count 5.52 M/mm3 (4.30-5.90); White Blood Cell Count 5.64 K/mm3 (4.00-11.30)
[2021-09-03 05:19] LABS: Alanine Aminotransfer (ALT/SGP 55 U/L (12-78); Albumin, Blood 3.1 g/dL (3.4-5.0); Albumin/Globulin Ratio 0.8 (0.8-1.8); Alk Phos 56 U/L (50-136); Anion Gap 5 mmol/L (6-16); Aspartate Aminotrans (AST/SGOT 38 U/L (12-37); Bilirubin, Total 0.7 mg/dL (0.1-1.0); Blood Urea Nitrogen 31 mg/dL (8-24); Bun/Creatinine Ratio 52.4 (12.0-20.0); CO2, Blood 27 mmol/L (21-32); Calcium, Blood 9.5 mg/dL (8.5-10.1); Chloride, Blood 114 mmol/L (98-108); Creatinine, Blood 0.59 mg/dL (0.60-1.20); Globulin, Blood 3.8 g/dL (2.2-4.0); Glomerular Filtration Rate >60 (60-); Glucose, Blood 124 mg/dL (70-99); Magnesium, Blood 1.7 mg/dL (1.6-2.4); Phosphorus, Blood 2.7 mg/dL (2.5-4.9); Sodium, Blood 146 mmol/L (136-145); Total Protein, Blood 6.9 g/dL (6.4-8.2)
--- NOTE | 2021-09-03 18:09 | NUR ---
PT SUMMARY: PT REMAINS ON NG TUBE FEEDING AT GOAL RATE 55MLS/HR FREE WATER INCREASED TO 100MLS Q4HRS PER DR GONZALEZ. VITALS HRR 70-90'S, BP SYSTOLIC 140'S, SATS ABOVE 95% ON RA, AFEBRILE. PT IS MORE ALERT AND TALKING TODAY ALERT AND ORIENTED X3, ABLE TO STATE NAME, , KNOWS WHERE HE'S AT, KEEPS ASKING AND YELLING OUT FOR WATER, SOMETIMES AGITATED WILL PULL ON LINES AND CATHETER RIGHT WRIST RESTRAINT REMAINED IN PLACE TO PROTECT LINES AND TUBINGS. MEDS WAS GIVEN CRUSHED IN APPLESAUCE PT WAS ABLE TO TOLERATE NO COUGHING EPISODES. PT WAS ABLE TO WORK WITH PHYSICAL THERAPIST PT NOT COOPERATIVE THAT MUCH. PT STILL STIFF ON HIS LEFT SIDE BUT IS ABLE TO MOVE RIGHT SIDE BY HIMSELF. PT REPOSITIONED Q2HRS FOR COMFORT, JOSEPH DRAINING PATENT AND INTACT VIA GRAVITY. CALL LIGHTS IN REACH WILL REPORT TO ONCOMING SHIFT
--- NOTE | 2021-09-04 04:26 | NUR ---
Overnight uneventful, pt appetite increasing, I suspect NG tube can come out soon. He calls out st;; and is restrained for safety reasons, he pulls on lines and tubes evry chance he gets, will continue to monitor
[2021-09-04 05:14] LABS: BASOPHILS ABSOLUTE AUTO 0.06 K/mm3 (0.00-0.23); BASOPHILS PERCENT AUTO 1 % (0-2); EOSINOPHILS ABSOLUTE AUTO 0.23 K/mm3 (0.00-0.68); EOSINOPHILS PERCENT AUTO 4 % (0-6); Hematocrit 44.5 % (37.0-53.0); Hemoglobin 14.1 g/dL (13.5-17.5); IMMATURE GRAN ABSOLUTE AUTO 0.02 K/mm3 (0.00-0.10); IMMATURE GRAN PERCENT AUTO 0 % (0-1); LYMPHOCYTES ABSOLUTE AUTO 2.12 K/mm3 (0.84-5.20); LYMPHOCYTES PERCENT AUTO 37 % (21-46); MONOCYTES ABSOLUTE AUTO 0.51 K/mm3 (0.16-1.47); MONOCYTES PERCENT AUTO 9 % (4-13); Mean Corpuscular HGB Conc 31.7 g/dL (31.5-36.5); Mean Corpuscular Volume 79 fL (80-100); Mean Platelet Volume 9.7 fL (9.1-12.4); NEUTROPHILS ABSOLUTE AUTO 2.74 K/mm3 (1.96-9.15); NEUTROPHILS PERCENT AUTO 48 % (41-73); Platelet Count 225 K/mm3 (150-400); RDW Coefficient Variation 24.1 % (11.7-14.2); Red Blood Cell Count 5.65 M/mm3 (4.30-5.90); White Blood Cell Count 5.68 K/mm3 (4.00-11.30)
[2021-09-04 05:38] LABS: Alanine Aminotransfer (ALT/SGP 51 U/L (12-78); Albumin, Blood 3.1 g/dL (3.4-5.0); Albumin/Globulin Ratio 0.8 (0.8-1.8); Alk Phos 58 U/L (50-136); Anion Gap 3 mmol/L (6-16); Aspartate Aminotrans (AST/SGOT 35 U/L (12-37); Bilirubin, Total 0.8 mg/dL (0.1-1.0); Blood Urea Nitrogen 29 mg/dL (8-24); Bun/Creatinine Ratio 45.9 (12.0-20.0); CO2, Blood 28 mmol/L (21-32); Calcium, Blood 9.6 mg/dL (8.5-10.1); Chloride, Blood 111 mmol/L (98-108); Creatinine, Blood 0.63 mg/dL (0.60-1.20); Glomerular Filtration Rate >60 (60-); Glucose, Blood 119 mg/dL (70-99); Magnesium, Blood 1.7 mg/dL (1.6-2.4); Phosphorus, Blood 2.9 mg/dL (2.5-4.9); Sodium, Blood 142 mmol/L (136-145); Total Protein, Blood 7.1 g/dL (6.4-8.2)
--- NOTE | 2021-09-04 15:52 | NUR ---
NO CHANGES FOR THE SHIFT, DIET RESUMED PUREE THIN LIQUIDS PER SPEECH THERAPIST PT WAS ABLE TO TOLERATE NO COUGHING ISSUES, PT HAS BEEN DRINKING LOTS OF FLUIDS KEEPS ASKING OR YELLING OUT FOR WATER. NG TUBE WAS PULLED NO ISSUES. VITALS HAS BEEN STABLE. MOM RADHA WAS GIVEN UPDATE REGARDING PT VIA PHONE. STATUS CHANGED TO MEDICAL WITH NO TELE, TRANSFERRED TO 348 REPORT GIVEN TO LOUIS ORTEGA, ALL BELONGINGS SENT WITH THE PT
--- NOTE | 2021-09-04 17:11 | NUR ---
SHIFT SUMMARY PATIENT TRANSFERRED FROM PCU AT 1445. PATIENT IN RIGHT WRIST RESTRAINT. PATIENT SETTLED INTO ROOM. GIVEN CALL LIGHT AND EDUCATED ON USE. PATIENT REQUESTING TO CALL MOM, PATIENT STATES HE HAD CELL PHONE, CALLED PCU NURSE SINCE IT WAS NOT IN HIS SENT [id number]. THERE IS NO PHONE IN PATIENTS ROOM, CALL MAINTAINANCE FOR NEW ONE. R A/C IV FLUSHES. LEFT HAND IV NOT PATENT, REMOVED. PATIENT YELLS OUT FREQUENTLY, EDUCATED BOTTOM POLISHER LIGHT USE AGAIN, PATIENT CONTINUES TO YELL OUT. PATIENT STATES TO THIS RN, HE JUST WANTS TO GO HOME, HE DOES NOT WANT TO GO TO REHAB. PATIENT IS ON PUREE DIET, BUT NEEDS ASSISTANCE EATING. CONFIRMED WITH IRVIN FROM SPEECH THERAPY THAT STRAWS ARE OKAY. PATIENT EATING AND DRINKING WELL.
[2021-09-04] MEDS ORDERED: HYDHCL25 PO (23:49)
[2021-09-04] MEDS ORDERED: HYDCHL25 PO (23:49)
[2021-09-04] MEDS ORDERED: BUPRENORP-NALO1 EAC3 SL (23:50)
--- NOTE | 2021-09-05 04:59 | NUR ---
SHIFT SUMMARY: THE PT IS A/OX3. HE HAS NOT BEEN COMPLAINT WITH ALL CARE. FAMILY WAS PRESENT AT SHIFT CHANGE ENCOURAGING HIM TO BE MORE COOPERATIVE. HE IS FLACCID ON THE LEFT SIDE D/T PRIOR CVA. LITTLE TO NO MOVEMENT ON THE RIGHT SIDE; DUE TO THAT HE YELLS OUT FOR NEEDS. AT TIMES THIS SHIFT HE WOULD YELL OUT AND RN OR PACS SPECIALIST WOULD RESPOND, BUT PT STATED THAT HE DIDN'T KNOW WHY HE'S YELLING OUT. PT REPORTED HE NEEDED TO HAVE A BM, BUT AFTER THREE ATTEMPTS, HE WAS NOT SUCCESSFUL. JOSEPH CATH IS PATENT W/ YELLOW AND CLEAR URINE.
[2021-09-05 06:03] LABS: BASOPHILS ABSOLUTE AUTO 0.07 K/mm3 (0.00-0.23); BASOPHILS PERCENT AUTO 1 % (0-2); EOSINOPHILS PERCENT AUTO 6 % (0-6); Hematocrit 43.4 % (37.0-53.0); Hemoglobin 13.9 g/dL (13.5-17.5); Mean Corpuscular HGB 25.2 pg (26.0-34.0); Mean Corpuscular Volume 79 fL (80-100); Mean Platelet Volume 9.6 fL (9.1-12.4); Platelet Count 183 K/mm3 (150-400); RDW Standard Deviation 62.7 fL (35.1-46.3); Red Blood Cell Count 5.51 M/mm3 (4.30-5.90); White Blood Cell Count 6.23 K/mm3 (4.00-11.30)
[2021-09-05 06:10] LABS: IMMATURE GRAN ABSOLUTE AUTO 0.01 K/mm3 (0.00-0.10); IMMATURE GRAN PERCENT AUTO 0 % (0-1); LYMPHOCYTES ABSOLUTE AUTO 2.66 K/mm3 (0.84-5.20); LYMPHOCYTES PERCENT AUTO 43 % (21-46); MONOCYTES ABSOLUTE AUTO 0.54 K/mm3 (0.16-1.47); MONOCYTES PERCENT AUTO 9 % (4-13); NEUTROPHILS ABSOLUTE AUTO 2.55 K/mm3 (1.96-9.15); NEUTROPHILS PERCENT AUTO 41 % (41-73)
[2021-09-05 06:31] LABS: Alanine Aminotransfer (ALT/SGP 52 U/L (12-78); Albumin, Blood 2.9 g/dL (3.4-5.0); Albumin/Globulin Ratio 0.8 (0.8-1.8); Alk Phos 53 U/L (50-136); Anion Gap 5 mmol/L (6-16); Aspartate Aminotrans (AST/SGOT 38 U/L (12-37); Bilirubin, Total 0.7 mg/dL (0.1-1.0); Blood Urea Nitrogen 29 mg/dL (8-24); Bun/Creatinine Ratio 54.3 (12.0-20.0); CO2, Blood 27 mmol/L (21-32); Calcium, Blood 9.4 mg/dL (8.5-10.1); Chloride, Blood 106 mmol/L (98-108); Creatinine, Blood 0.53 mg/dL (0.60-1.20); Globulin, Blood 3.5 g/dL (2.2-4.0); Glomerular Filtration Rate >60 (60-); Glucose, Blood 91 mg/dL (70-99); Potassium, Blood 3.8 mmol/L (3.5-5.5); Sodium, Blood 138 mmol/L (136-145); Total Protein, Blood 6.4 g/dL (6.4-8.2)
--- NOTE | 2021-09-05 13:21 | NUR ---
PT YELLING OUT FOR "HELP" CONSTANTLY. THIS NURSE ENTERED ROOM AND ASKED PATIENT WHAT HE NEEDED. PT STATED "YOU GUYS ARE IGNORING ME." THIS NURSE EDUCATED PATIENT ON USING THE CALL LIGHT AND THAT HIS YELLING IS UPSETTING OTHER PATIENTS. THIS NURSE PLACED THE CALL LIGHT IN HIS RIGHT HAND. PATIENT THEN SAID "I'LL CATCH YOU MOTHER FUCKERS OUTSIDE." THIS NURSE TOLD PATIENT THAT HE WILL NOT THREATEN STAFF. THIS NURSE LEFT THE ROOM AND SHUT THE DOOR. PATIENT CONTINUED TO YELL FOR "HELP." DONITA ANNE IN NEXT AND ASKED PATIENT WHAT HE NEEDED AND HE REFUSED TO ANSWER. PT STATES AT TIMES THAT HE IS "LONELY" AND "WANTS ATTENTION."
--- NOTE | 2021-09-05 18:48 | NUR ---
SHIFT SUMMARY PT AXO X3-4. IRRITABLE THOUGH COOPERATIVE WITH CARE. PT CALLS OUT THOUGHOUT THE DAY AND REFUSES TO USE CALL LIGHT (DESPITE IT BEING PLACED UNDER HIS HAND WITH FINGER ON THE CALL BUTTON) . BEDBOUND. TURN Q2. FLACID ON L. SIDE. R SIDED STIFFNESS. VSS. JOSEPH DC'D AND PT HAS VOIDED X2 SINCE REMOVAL. PT HAS ALSO COMPLAINED OF FEELING LIKE HE WAS GOING TO HAVE A BM BUT EVERY TIME HE WAS ON THE BED BURK, HE WAS UNABLE TO VOID. DR DOMINGO NOTIFIED AND NEW ORDERS PLACED. AFTER ENEMA PT WAS ABLE TO HAVE A LIQUID BROWN STOOL BM THOUGH PT CONTINUES TO COMPLAIN THAT HE HAS "TO POOP." BED IN LOW POSITION, CALL LIGHT WITHIN REACH.
[2021-09-06 05:14] LABS: BASOPHILS ABSOLUTE AUTO 0.07 K/mm3 (0.00-0.23); BASOPHILS PERCENT AUTO 1 % (0-2); EOSINOPHILS PERCENT AUTO 4 % (0-6); Hematocrit 44.9 % (37.0-53.0); Hemoglobin 14.4 g/dL (13.5-17.5); IMMATURE GRAN ABSOLUTE AUTO 0.04 K/mm3 (0.00-0.10); IMMATURE GRAN PERCENT AUTO 1 % (0-1); LYMPHOCYTES ABSOLUTE AUTO 3.37 K/mm3 (0.84-5.20); LYMPHOCYTES PERCENT AUTO 40 % (21-46); MONOCYTES ABSOLUTE AUTO 0.66 K/mm3 (0.16-1.47); MONOCYTES PERCENT AUTO 8 % (4-13); Mean Corpuscular HGB 25.4 pg (26.0-34.0); Mean Corpuscular HGB Conc 32.1 g/dL (31.5-36.5); Mean Corpuscular Volume 79 fL (80-100); Mean Platelet Volume 10.2 fL (9.1-12.4); NEUTROPHILS ABSOLUTE AUTO 3.94 K/mm3 (1.96-9.15); NEUTROPHILS PERCENT AUTO 47 % (41-73); Platelet Count 218 K/mm3 (150-400); RDW Coefficient Variation 23.1 % (11.7-14.2); RDW Standard Deviation 63.2 fL (35.1-46.3); Red Blood Cell Count 5.67 M/mm3 (4.30-5.90); White Blood Cell Count 8.38 K/mm3 (4.00-11.30)
[2021-09-06 05:53] LABS: Alanine Aminotransfer (ALT/SGP 53 U/L (12-78); Albumin, Blood 3.3 g/dL (3.4-5.0); Albumin/Globulin Ratio 0.9 (0.8-1.8); Alk Phos 58 U/L (50-136); Anion Gap 6 mmol/L (6-16); Aspartate Aminotrans (AST/SGOT 35 U/L (12-37); Bilirubin, Total 0.9 mg/dL (0.1-1.0); Blood Urea Nitrogen 33 mg/dL (8-24); Bun/Creatinine Ratio 50.1 (12.0-20.0); CO2, Blood 25 mmol/L (21-32); Calcium, Blood 9.6 mg/dL (8.5-10.1); Chloride, Blood 106 mmol/L (98-108); Creatinine, Blood 0.66 mg/dL (0.60-1.20); Globulin, Blood 3.8 g/dL (2.2-4.0); Glomerular Filtration Rate >60 (60-); Glucose, Blood 104 mg/dL (70-99); Potassium, Blood 4.3 mmol/L (3.5-5.5); Sodium, Blood 137 mmol/L (136-145); Total Protein, Blood 7.1 g/dL (6.4-8.2)
--- NOTE | 2021-09-06 06:07 | NUR ---
SHIFT SUMMARY 46 YR M ADMITTED ON 08/29/21. FULL CODE. PT HAS ALTERED MENTAL STATUS AND IS CURRENTLY AWAITING PLACEMENT. HE IS COOPERATIVE FOR THE MOST PART BUT HE YELLS OUT OFTEN AND LOUD. AT TIMES HE ASKS FOR HELP BUT MOSTLY HE JUST RANDOMLY YELLS. AT ONE PINT I ASKED HIM TO STOP YELLING AND HE TOLD ME TO "FUCK OFF". HE HAD BOWEL CARE PRIOR SHIFT AND DID HAVE A LARGE BOWEL MOVEMENT THIS SHIFT. THERE WERE NO OTHER ACUTE CHANGES THIS SHIFT.
--- NOTE | 2021-09-06 16:50 | NUR ---
PT IS A/OX3. COOPERATIVE. THE PT HAS BEEN REPOSTIONED T/O THE DAY. PT IS FLACID ON THE LEFT SIDE AND HAS VERY LITTLE MOVEMENT ON THE RIGHT SIDE EXTREMITIES. OCCUPATIONAL THERAPIST WORKED WITH THE PT TODAY. THE PT YELLS OUT FOR HELP DOES NOT OR IS NOT ABLE TO USE THE CALL LIGHT. THE PT APPEARS TO BE BREATHING EASILY ON RA. BED IN LOW POSITION CALL LIGHT IN REACH, BED ALARM ON. WILL CONTINUE TO MONITOR AND ASSESS FOR CHANGES
--- NOTE | 2021-09-07 04:49 | NUR ---
SHIFT SUMMARY 46 YR M ADMITTED ON 08/29/21. FULL CODE. NO ACUTE CHANGES THIS SHIFT. PT CONTINUES TO CALL OUT LOUDLY OVER AND OVER UNTIL SOMEONE ENTERS THE ROOM. WHEN ASKED WHAT HE NEEDS HE SAYS "NOTHING" AND CONTINUES TO YELL. HE IS STRONGLY ENCOURAGED TO USE HIS CALL LIGHT BUT HE REFUSES ALTHOUGH HE IS ABLE. HE STATED TO ME TODAY THAT HE WAS SAD THAT HIS GIRLFRIEND, FRANCISCO, DID NOT COME SEE HIM TODAY. A CONDOM CATH WAS PLACED TODAY AND SEEMS TO BE WORKING WELL FOR HIM. HE FINALLY FELL ASLEEP AROUND 0230 AND SLEPT FOR SEVERAL HOURS.
[2021-09-07 05:20] LABS: BASOPHILS ABSOLUTE AUTO 0.05 K/mm3 (0.00-0.23); BASOPHILS PERCENT AUTO 1 % (0-2); EOSINOPHILS ABSOLUTE AUTO 0.31 K/mm3 (0.00-0.68); EOSINOPHILS PERCENT AUTO 5 % (0-6); Hematocrit 42.3 % (37.0-53.0); Hemoglobin 14.1 g/dL (13.5-17.5); IMMATURE GRAN ABSOLUTE AUTO 0.03 K/mm3 (0.00-0.10); IMMATURE GRAN PERCENT AUTO 1 % (0-1); LYMPHOCYTES ABSOLUTE AUTO 2.69 K/mm3 (0.84-5.20); LYMPHOCYTES PERCENT AUTO 44 % (21-46); MONOCYTES ABSOLUTE AUTO 0.49 K/mm3 (0.16-1.47); MONOCYTES PERCENT AUTO 8 % (4-13); Mean Corpuscular HGB 25.9 pg (26.0-34.0); Mean Corpuscular HGB Conc 33.3 g/dL (31.5-36.5); Mean Corpuscular Volume 78 fL (80-100); NEUTROPHILS ABSOLUTE AUTO 2.61 K/mm3 (1.96-9.15); NEUTROPHILS PERCENT AUTO 42 % (41-73); Platelet Count 172 K/mm3 (150-400); RDW Coefficient Variation 22.5 % (11.7-14.2); Red Blood Cell Count 5.45 M/mm3 (4.30-5.90); White Blood Cell Count 6.18 K/mm3 (4.00-11.30)
[2021-09-07 05:39] LABS: Alanine Aminotransfer (ALT/SGP 48 U/L (12-78); Albumin/Globulin Ratio 0.8 (0.8-1.8); Alk Phos 52 U/L (50-136); Anion Gap 8 mmol/L (6-16); Aspartate Aminotrans (AST/SGOT 32 U/L (12-37); Bilirubin, Total 0.7 mg/dL (0.1-1.0); Blood Urea Nitrogen 27 mg/dL (8-24); Bun/Creatinine Ratio 46.6 (12.0-20.0); CO2, Blood 26 mmol/L (21-32); Calcium, Blood 9.3 mg/dL (8.5-10.1); Chloride, Blood 104 mmol/L (98-108); Creatinine, Blood 0.58 mg/dL (0.60-1.20); Globulin, Blood 3.6 g/dL (2.2-4.0); Glomerular Filtration Rate >60 (60-); Glucose, Blood 92 mg/dL (70-99); Potassium, Blood 3.9 mmol/L (3.5-5.5); Sodium, Blood 138 mmol/L (136-145); Total Protein, Blood 6.6 g/dL (6.4-8.2)
--- NOTE | 2021-09-07 16:49 | NUR ---
SHIFT SUMMARY PT A/O X 3. COOPERATIVE WITH CARE BUT IRRITABLE. WITHDRAWN WITH A FLAT AFFECT. LEFT SIDE FLACID AND RIGHT ARM STIFF WITH MINIMAL MOVEMENT. PHYSICAL THERAPY WORKED WITH HIM TODAY. ABLE TO DANGLE AT BEDISDE WITH MAX ASSIST. PT REPOSITIONED FREQUENTLY. PT REQUIRES ASSIST TO EAT, ENCOURGED FLUIDS. CONDOM CATH IN PLACE. REPORTS CONSTIPATION, MIRALAX GIVEN, REFUSED ENEMA. THIS AFTERNOON PT'S GIRLFRIEND 'FRANCISCO' CAME TO VISIT. PT CALLS OUT T/O DAY FOR HELP. DOES NOT USE CALL LIGHT. BED ALARM IN PLACE AT AL TIMES.
--- NOTE | 2021-09-07 16:59 | NUR ---
AM ASSESSMENT I AGREE WITH AND WAS PRESENT DURING THE SN ASHTON'S AM SHIFT ASSESSMENT AND HAVE REVIEWED AND AGREE WITH HER DOCUMENTATION ON THIS PATIENT.
--- NOTE | 2021-09-08 05:01 | NUR ---
SHIFT SUMMARY 46 YR F ADMITTED ON 08/29/21. FULL CODE. NO ACUTE CHANGES THIS SHIFT. PT HAS ALTERED MENTAL STATUS AND CONTINUOUSLY YELLS OUT FOR HELP. WHEN ASKED WHAT HE NEEDS HE REPLIES "NOTHING" OR CURSES AT THE STAFF MEMBER. HE BECAME AGITATED AT THIS NURSE DURING THIS SHIFT AND STATED "I WILL FUCK YOU UP". MOST OF THE TIME HE IS PRETTY QUIET AND COOPERATIVE WHEN A STAFF MEMBER IS IN THE ROOM. HE BECOMES EMOTIONAL WHEN HE TALKS ABOUT HIS GIRLFRIEND, FRANCISCO. HE IS STILL UNABLE TO MOVE HIS ARMS AND LEGS AND APPEARS TO BE UNWILLING TO PARTICIPATE IN HIS OWN CARE. BED IN LOW POSITION AND CALL LIGHT WITHIN REACH.
--- NOTE | 2021-09-08 16:38 | NUR ---
SHIFT SUMMARY: PATIENT SHOUTS OUT CONSTANTLY WHILE AWAKE, YELLING "HELP!", AND CURSING AT STAFF. A&O TO SELF ONLY. CONSTANTLY ASKS FOR STAFF TO CALL HIS MOM OR GIRLFRIEND; MADE 7 PHONE CALLS TO [facility] FOR HIM AND TWO TO HIS MOM. L SIDE IS FLACCID WITH CONTRACTURES, R SIDE WITH SPACTICITY BUT CAN MOVE R HAND AND FINGERS. DENIED PAIN. TRIED TO HAVE BM SEVERAL TIMES BUT NO SUCCESS. NEW CONSULT PLACED FOR DR. ROSE TO RE-EVALUATE FOR SI, PLACEMENT PENDING. TOLERATING PO INTAKE.
--- NOTE | 2021-09-08 22:22 | NUR ---
ANXIETY: PATIENT CONTINUES TO YELL FOR HELP CONSTANTLY. WHEN STAFF ASK WHAT HE NEED HE'S REPLY'S "NOTHING" OR "I DON'T KNOW". SCHEDULED VALIUM WAS GIVEN WITH POOR EFFECT. DR GREENE IS CALLED AND ORDER FOR ATIVAN Q6H PRN IS OBTAINED.
--- NOTE | 2021-09-09 05:05 | NUR ---
SHIFT SUMMARY: PATIENT HAD GOOD EFFECT FROM ATIVAN AND SLEPT THROUGH THE NIGHT. THIS AM THEIR IS AN ODD PETECHIAE RASH OBSERVED ON PELVIC AREA AND CHEST IS REDDENED. PATIENT DENIES ITCHING.
--- NOTE | 2021-09-09 06:43 | NUR ---
INTEGUMENTARY: ORDER FOR BENADRYL WAS OBTAINED FROM DR MENDOZA AND MED WAS GIVEN. PATIENT REPORTED THAT HE HAS TAKEN ATIVAN BEFORE WITH NO ADVERSE AFFECTS. PATIENT IS NOW YELLING AGAIN. ALL NEEDS HAVE BEEN ADDRESSED.
--- NOTE | 2021-09-09 17:25 | NUR ---
SHIFT SUMMARY 46 Y M ADMITTED WITH ACUTE KIDNEY FAILURE AND SI. PT HAS HX OF CVA, HIV AND HEP C. PT HAS BEEN DENIED TO MULTIPLE SNF'S DUE TO HX OF METH USE. PT IS BED BOUND AND REQUIRES MAX ASSIST WITH ALL ADL'S, HE IS INC WITH CONDOM CATH IN PLACE. TODAY PT WAS INTERMITTENTLY RESTLESS AND CALLING OUT FOR HELP, BUT WHEN NURSING STAFF WENT IN TO ASSESS PT DIDN'T KNOW WHY HE WAS YELLING. PT WAS VERY WITHDRAWN AND HD VERY LITTLE INTEREST IN EATING TODAY. DR. MINAYA IN TO SEE PT TODAY AND DISCUSSED PT'S HTN AND FREQUENT DIAPHORESIS AND SOME MEDICATION CHANGES MADE. REPORTS PT IS CLOSE TO D/C READY AND IS PENDING SAFE D/C PLAN WITH PROBABLE PLACEMENT. NO OTHER CHANGES TO REPORT THIS SHIFT.
--- NOTE | 2021-09-10 06:27 | NUR ---
SHIFT SUMMARY: PATIENT CONTINUES TO BE TACHYCARDIC, DIAPHORETIC. ANXIOUS YELLING OUT FOR HELP, WHEN STAFF ENTERS ROOM HE CAN NOT OR WILL NOT IDENTIFY WHAT HIS NEEDS ARE. FIRST DOSE OF LOPRESSOR WAS GIVEN AT HS WITH FAIR EFFECT. ATIVAN WAS GIVEN X1 FOR ANXIETY WITH GOOD EFFECT. PO INTAKE IS DECREASED.
[2021-09-10 09:07] LABS: BASOPHILS ABSOLUTE AUTO 0.07 K/mm3 (0.00-0.23); BASOPHILS PERCENT AUTO 1 % (0-2); EOSINOPHILS ABSOLUTE AUTO 0.22 K/mm3 (0.00-0.68); EOSINOPHILS PERCENT AUTO 3 % (0-6); Hematocrit 48.2 % (37.0-53.0); Hemoglobin 15.3 g/dL (13.5-17.5); IMMATURE GRAN ABSOLUTE AUTO 0.01 K/mm3 (0.00-0.10); IMMATURE GRAN PERCENT AUTO 0 % (0-1); LYMPHOCYTES ABSOLUTE AUTO 2.97 K/mm3 (0.84-5.20); LYMPHOCYTES PERCENT AUTO 38 % (21-46); MONOCYTES ABSOLUTE AUTO 0.62 K/mm3 (0.16-1.47); MONOCYTES PERCENT AUTO 8 % (4-13); Mean Corpuscular HGB 25.4 pg (26.0-34.0); Mean Corpuscular HGB Conc 31.7 g/dL (31.5-36.5); Mean Corpuscular Volume 80 fL (80-100); Mean Platelet Volume 10.5 fL (9.1-12.4); NEUTROPHILS ABSOLUTE AUTO 4.04 K/mm3 (1.96-9.15); NEUTROPHILS PERCENT AUTO 51 % (41-73); Platelet Count 228 K/mm3 (150-400); RDW Coefficient Variation 22.9 % (11.7-14.2); RDW Standard Deviation 63.1 fL (35.1-46.3); Red Blood Cell Count 6.03 M/mm3 (4.30-5.90); White Blood Cell Count 7.93 K/mm3 (4.00-11.30)
[2021-09-10 09:21] LABS: Alanine Aminotransfer (ALT/SGP 46 U/L (12-78); Albumin, Blood 3.1 g/dL (3.4-5.0); Albumin/Globulin Ratio 0.7 (0.8-1.8); Alk Phos 66 U/L (50-136); Anion Gap 7 mmol/L (6-16); Aspartate Aminotrans (AST/SGOT 32 U/L (12-37); Bilirubin, Total 0.5 mg/dL (0.1-1.0); Blood Urea Nitrogen 35 mg/dL (8-24); Bun/Creatinine Ratio 53.8 (12.0-20.0); CO2, Blood 25 mmol/L (21-32); Chloride, Blood 107 mmol/L (98-108); Creatinine, Blood 0.65 mg/dL (0.60-1.20); Globulin, Blood 4.3 g/dL (2.2-4.0); Glomerular Filtration Rate >60 (60-); Glucose, Blood 99 mg/dL (70-99); Sodium, Blood 139 mmol/L (136-145); Total Protein, Blood 7.4 g/dL (6.4-8.2)
--- NOTE | 2021-09-10 16:35 | NUR ---
PT HAS BEEN SCREAMING "HELP" NON STOP FOR 9 HOURS AND WAS DISTURBING THE OTHER PTS. DR MULLEN AGREED HE NEEDED SLEEP AND ALSO OFFERED XANAX TO BE GIVEN THIS EVENING IN LIEU OF ATIVAN. WILL CONTINUE TO MONITOR PT.
--- NOTE | 2021-09-10 17:27 | NUR ---
SHIFT SUMMARY PT HAS BEEN IN HIS ROOM YELLING HELP ALL DAY. WHEN ASKED WHAT HE NEEDS HE DOES NOT RESPOND. HE OCCASIONALLY SAYS UNKIND THINGS TO STAFF, BUT OTHERWISE ONLY YELLS "HELP ME!" PT WAS GIVEN A ONE TIME ZYPREXA AND THAT HELPED CALM HIM CONSIDERABLY. HE HAS BEEN SLEEPING CALMLY FOR A WHILE NOW THAT HE HAS BEEN PRN HAS BEEN ADMINISTERED. WILL CONTINUE TO MONITOR.
--- NOTE | 2021-09-10 19:34 | NUR ---
REPOSITIONED. VOICED ANGER WITH STAFF. CALL LIGHT IN REACH. HOB ELEVATED FOR COMFORT
--- NOTE | 2021-09-11 03:28 | NUR ---
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 REFUSED TO COMPLY WITH NEURO CHECKS, OR WOULD JUST APPEAR TO IGNORE NURSE REQUESTS. LATER IN THE SHIFT [facility]SA CALLING OUT FOR "HELP", BUT WHEN STAFF ENTERRED ROOM, PT WOULD REMAIN QUIET WHEN ASKED WHAT HE NEEDED. NO VOICED SELF HARM. HAS BEEN RESTING QUIETLY OTHERWISE. CALL LIGHT IN REACH. CONDOM CATH IN USE
[2021-09-11 05:05] LABS: BASOPHILS ABSOLUTE AUTO 0.06 K/mm3 (0.00-0.23); BASOPHILS PERCENT AUTO 1 % (0-2); EOSINOPHILS ABSOLUTE AUTO 0.26 K/mm3 (0.00-0.68); EOSINOPHILS PERCENT AUTO 4 % (0-6); Hematocrit 47.1 % (37.0-53.0); Hemoglobin 14.9 g/dL (13.5-17.5); IMMATURE GRAN ABSOLUTE AUTO 0.01 K/mm3 (0.00-0.10); IMMATURE GRAN PERCENT AUTO 0 % (0-1); LYMPHOCYTES ABSOLUTE AUTO 2.29 K/mm3 (0.84-5.20); LYMPHOCYTES PERCENT AUTO 37 % (21-46); MONOCYTES ABSOLUTE AUTO 0.58 K/mm3 (0.16-1.47); MONOCYTES PERCENT AUTO 9 % (4-13); Mean Corpuscular HGB 25.3 pg (26.0-34.0); Mean Corpuscular HGB Conc 31.6 g/dL (31.5-36.5); Mean Corpuscular Volume 80 fL (80-100); Mean Platelet Volume 10.6 fL (9.1-12.4); NEUTROPHILS PERCENT AUTO 48 % (41-73); Platelet Count 229 K/mm3 (150-400); RDW Coefficient Variation 22.6 % (11.7-14.2); Red Blood Cell Count 5.88 M/mm3 (4.30-5.90)
[2021-09-11 05:44] LABS: Alanine Aminotransfer (ALT/SGP 49 U/L (12-78); Albumin/Globulin Ratio 0.7 (0.8-1.8); Alk Phos 64 U/L (50-136); Anion Gap 6 mmol/L (6-16); Aspartate Aminotrans (AST/SGOT 37 U/L (12-37); Bilirubin, Total 0.6 mg/dL (0.1-1.0); Blood Urea Nitrogen 37 mg/dL (8-24); Bun/Creatinine Ratio 53.2 (12.0-20.0); CO2, Blood 26 mmol/L (21-32); Calcium, Blood 9.9 mg/dL (8.5-10.1); Chloride, Blood 106 mmol/L (98-108); Globulin, Blood 4.2 g/dL (2.2-4.0); Glomerular Filtration Rate >60 (60-); Glucose, Blood 96 mg/dL (70-99); Sodium, Blood 138 mmol/L (136-145); Total Protein, Blood 7.2 g/dL (6.4-8.2)
--- NOTE | 2021-09-11 16:18 | NUR ---
DAY SHIFT SUMMARY 46 YR OLD MALE PT IN WITH ACUTE KIDNEY FAILURE, ON RA, PT MOSTLY NOT VERBALIZING THIS SHIFT, VERY LITTLE VERBAL RESPONSE. MRI PERFORMED TODAY AND ST RE-EVAL. PT DIET CHANGED. PER MD, MRI SHOWS PT HAS EXPERIENCED ANOTHER STROKE. MD HAS ASK THAT WE HOLD ANY MEDICATIONS WITH A SEDATIVE EFFECT. PT HAS HX OF HIV, HEP C, PREVIOUS STROKE, AND METH USE. FAMILY AT BEDSIDE MOST OF SHIFT. FREQUENT ROUNDING.
--- NOTE | 2021-09-11 16:33 | NUR ---
Supportive visit this afternoon. Spoke with Primary RN Gregoria and discussed case. Dr Castillo to order echo and chest X-Ray. Pt resting in bed with his eyes closed. Pt's mother Kaylynn and Pt's sister at bedside. Pt remains with his eyes closed throughout the visit. Pt does occasionally attempt to mumble a word. Sister attentive to Pt during visit. Engaged in therapeutic listening as family discusses plan for further testing. Listened as family reports having as much information may help them with potential decisions. Continued therapeutic listening, validated concerns, and answered questions. Family expresses appreciation and report no other concerns at this time. Palliative Care will remain available.
[2021-09-12 05:42] LABS: BASOPHILS ABSOLUTE AUTO 0.06 K/mm3 (0.00-0.23); BASOPHILS PERCENT AUTO 1 % (0-2); EOSINOPHILS ABSOLUTE AUTO 0.09 K/mm3 (0.00-0.68); EOSINOPHILS PERCENT AUTO 1 % (0-6); Hematocrit 47.1 % (37.0-53.0); Hemoglobin 15.1 g/dL (13.5-17.5); IMMATURE GRAN ABSOLUTE AUTO 0.01 K/mm3 (0.00-0.10); IMMATURE GRAN PERCENT AUTO 0 % (0-1); LYMPHOCYTES ABSOLUTE AUTO 2.74 K/mm3 (0.84-5.20); LYMPHOCYTES PERCENT AUTO 41 % (21-46); MONOCYTES ABSOLUTE AUTO 0.63 K/mm3 (0.16-1.47); MONOCYTES PERCENT AUTO 9 % (4-13); Mean Corpuscular HGB 25.6 pg (26.0-34.0); Mean Corpuscular HGB Conc 32.1 g/dL (31.5-36.5); Mean Corpuscular Volume 80 fL (80-100); Mean Platelet Volume 10.7 fL (9.1-12.4); NEUTROPHILS PERCENT AUTO 48 % (41-73); Platelet Count 234 K/mm3 (150-400); RDW Coefficient Variation 22.4 % (11.7-14.2); RDW Standard Deviation 62.3 fL (35.1-46.3); White Blood Cell Count 6.73 K/mm3 (4.00-11.30)
--- NOTE | 2021-09-12 05:47 | NUR ---
SHIFT SUMMARY: PT HAS NOT BEEN CALLING OUT LIKE PREVIOUS SHIFTS. HIS FIANCEE WAS AT BEDSIDE DURING SHIFT CHANGE, BUT WENT HOME. PT WAS TURNED AND REPOSITIONED Q2. JOSEPH IS PATENT. MEDICATIONS WERE HELD D/T PATIENT'S ASPIRATION RISK AND UNWILLINGNESS TO BE COOPERATIVE. PT CONTINUES TO BE DIAPHORETIC, BUT REMAINS AFEBRILE. WE'LL CONTINUE TO MONITOR THE REST OF THE SHIFT.
[2021-09-12 06:15] LABS: Albumin, Blood 3.1 g/dL (3.4-5.0); Anion Gap 7 mmol/L (6-16); Blood Urea Nitrogen 46 mg/dL (8-24); Bun/Creatinine Ratio 65.1 (12.0-20.0); CO2, Blood 25 mmol/L (21-32); Chloride, Blood 108 mmol/L (98-108); Creatinine, Blood 0.71 mg/dL (0.60-1.20); Glomerular Filtration Rate >60 (60-); Glucose, Blood 105 mg/dL (70-99); Magnesium, Blood 2.4 mg/dL (1.6-2.4); Potassium, Blood 3.9 mmol/L (3.5-5.5); Sodium, Blood 140 mmol/L (136-145)
--- NOTE | 2021-09-12 15:42 | NUR ---
Spiritual Care Visit...at request of Palliative Care Pt. is in med and getting ultrasound tests when I enter room. Pts. family is present (sister and mother). Family welcomes my visit. Family verbalizes gratitude that tests are being done to attempt to identify the cause of the pts. strokes. Establish rapport by facilitating a life review with family. Pt. has expressed concern in the recent past about why God would allow him to suffer. With theraputic listening, lightly explore issues of maverick and belief with the family. Prayed for the Pt. and family. Family verbalized gratitude for the spiritual care visit.
--- NOTE | 2021-09-12 17:28 | NUR ---
DAY SHIFT SUMMARY 46 YR OLD MALE WITH ACUTE KIDNEY FAILURE. MULTIPLE STROKES WITH BOTH LT AND RT SIDED DEFICIT, LT SIDED FACIAL DROOP. MOM AND SISTER AT BEDSIDE MOST OF DAY, FIANCE AT BEDSIDE CURRENTLY. MUSCLE TIGHTNESS IN RT ANKLE WITH PAIN. MEDS GIVEN PER EMAR CRUSHED IN APPLE SAUCE. MRI OF CERVICAL SPINE AND ECHO WITH BUBBLE TEST PERFORMED. FREQUENT ROUNDING. CONTINUIOUS IV FLUIDS RUNNING.
[2021-09-12 23:09] LABS: % CD 4 POS. LYMPH. 9.3 % (30.8-58.5); ABSOLUTE CD 4 HELPER 214 /uL (359-1519); BASO (ABSOLUTE) 0.1 x10E3/uL (0.0-0.2); BASOS 1 % (Not Estab.); EOS 2 % (Not Estab.); EOS (ABSOLUTE) 0.1 x10E3/uL (0.0-0.4); HEMATOCRIT 47.7 % (37.5-51.0); HEMATOLOGY COMMENTS: Note: (.); HEMOGLOBIN 15.5 g/dL (13.0-17.7); IMMATURE GRANULOCYTES 1 % (Not Estab.); LYMPHS 33 % (Not Estab.); LYMPHS (ABSOLUTE) 2.3 x10E3/uL (0.7-3.1); MCH 26.3 pg (26.6-33.0); MCHC 32.5 g/dL (31.5-35.7); MCV 81 fL (79-97); MONOCYTES 8 % (Not Estab.); MONOCYTES(ABSOLUTE) 0.6 x10E3/uL (0.1-0.9); NEUTROPHILS 55 % (Not Estab.); NEUTROPHILS (ABSOLUTE) 3.8 x10E3/uL (1.4-7.0); PLATELETS 223 x10E3/uL (150-450); RBC 5.89 x10E6/uL (4.14-5.80); RDW 22.4 % (11.6-15.4); WBC 6.9 x10E3/uL (3.4-10.8)
[2021-09-13 05:06] LABS: Hematocrit 43.6 % (37.0-53.0); Mean Corpuscular HGB Conc 32.1 g/dL (31.5-36.5); Mean Corpuscular Volume 81 fL (80-100); Mean Platelet Volume 10.5 fL (9.1-12.4); Platelet Count 201 K/mm3 (150-400); RDW Coefficient Variation 22.2 % (11.7-14.2); Red Blood Cell Count 5.38 M/mm3 (4.30-5.90); White Blood Cell Count 4.74 K/mm3 (4.00-11.30)
--- NOTE | 2021-09-13 05:27 | NUR ---
SHIFT SUMMARY PT VERY ALERT AT START OF SHIFT. FREQUENTLY YELLING OUT FOR STAFF. ATTEMPTED TO FEED PT DINNER BUT PT DID NOT LIKE IT. PT DID SEEM TO ENJOY APPLESAUCE AND ATE AN ENTIRE CONTAINER OF THAT. PT REPORTED THAT HIS "BUTT HURTS". REPOSITIONED FOR COMFORT. GROIN AREA ALSO RED, ANTI FUNGAL POWDER APPLIED. PT WOULD ANSWER QUESTIONS SOMETIMES WITH SIMPLE ONE TO TWO WORD SENTENCES, OTHER TIMES HE WOULD JUST STARE AT YOU WHEN SPOKEN TO. APPEARS TO BE FLACCID IN ALL EXTREMETIES. CONDOM CATH REMAINED ON. 1/2 NS INFUSING. PT TOOK ALL PILLS CRUSHED IN APPLESAUCE. TOLERATED WELL. VITAL SIGNS STABLE.
[2021-09-13 05:39] LABS: Anion Gap 5 mmol/L (6-16); Blood Urea Nitrogen 47 mg/dL (8-24); Bun/Creatinine Ratio 77.6 (12.0-20.0); CO2, Blood 26 mmol/L (21-32); Calcium, Blood 9.6 mg/dL (8.5-10.1); Chloride, Blood 110 mmol/L (98-108); Creatinine, Blood 0.61 mg/dL (0.60-1.20); Glomerular Filtration Rate >60 (60-); Glucose, Blood 95 mg/dL (70-99); Phosphorus, Blood 3.3 mg/dL (2.5-4.9); Potassium, Blood 3.7 mmol/L (3.5-5.5); Sodium, Blood 141 mmol/L (136-145)
[2021-09-13 06:38] LABS: BASOPHILS ABSOLUTE MAN 0.14 K/mm3 (0.00-0.23); BASOPHILS PERCENT MAN 3 % (0-2); EOSINOPHILS ABSOLUTE MAN 0.09 K/mm3 (0.00-0.68); EOSINOPHILS PERCENT MAN 2 % (0-6); LYMPHOCYTES % ATYPICAL MANUAL 2 % (0-0); LYMPHOCYTES PERCENT MAN 55 % (21-46); MONOCYTES ABSOLUTE MAN 0.33 K/mm3 (0.16-1.47); MONOCYTES PERCENT MAN 7 % (4-13); NEUTROPHILS ABSOLUTE MAN 1.46 K/mm3 (1.96-9.15); SEG NEUTROPHILS PERCENT MAN 31 % (41-73); TOTAL CELLS COUNTED 100
--- NOTE | 2021-09-13 10:10 | NUR ---
CODE STATUS UPDATE: DR. COLEMAN CAME TO THE PT.'S BEDSIDE AND BEGAN TALKING TO THE PT. ABOUT TRANSISTIONING TO HOSPICE. THE PT. WAS ABLE TO VERBILIZE UNDERSTANDING OF WHAT HOSPICE MEANT, AND AFTER EDUCATION/AGREEMENT DR. COLEMAN LEFT TO PUT IN AN UPDATE ON CODE STATUS. NOW DNR. PT. WAS A&OX3 (THOUGHT WE WERE IN [place] INSTEAD OF [place], BTU KNEW WER WERE IN AN [facility]). RICO Peraza RN AND EVETTE Umaña FUEL SYSTEM MAINTENANCE WORKER (MYSELF) WERE AT THE BEDSIDE DURING THE CONVERSTAION AND WITNESSED THE PT. VERBALIZE HIS WANTS TO BE COMFORTABLE/TRANSITION.
--- NOTE | 2021-09-13 17:21 | NUR ---
SHIFT SUMMARY: PT. WAS VERY TIRED AT THE BEGINING OF THE SHIFT. HE WAS NOT WILLING TO OPEN HIS EYES, WAKE UP, OR TALK. AFTER A FEW MORE HOURS OF REST, THE PATIENT BEGAN BECOMING MORE ALERT, ORIENTED, COOPERATING WITH REQUESTS, AND BEGAN TO VERBALY RESPOND TO QUESTIONS. PT. HAS BEEN YELLING OUT THROUGHT THE SHIFT TO "JUST YELL OUT" AND THEN SOMETIMES HE JUST WANTED SOMETHING TO DRINK. PT. REQUESTED A BEDBATH, AND WHEN PREFORMING THE BEDBATH WE REMOVED HIS CONDOM CATH. WHICH REVEALED SORES AND EXCORIATION ON THE PENIAL SHAFT. WE GOT PICTURES, NOTIFIED THE DRJoaquina, CLEANED IT, AND PUT A BRIEF ON THE PT. W/O ANY CONDOM CATH. ALSO, THE PT. WAS DEVELOPING A NONBLANCHABLE RED SPOT ON HIS COCCYX. A MEPILEX WAS PLACED AND HIS BOTTOM WAS FLOATED. THERE WAS A FAMILY MEETING THAT INCLUDED PT.'S TWO SISTERS, KIM, MOTHER, DR. HURLEY, BENI FROM [facility], RICO Peraza RN, AND MYSELF. PT. EXPRESSED WANT FOR COMFORT CARE, AND FAMILY WAS RECEPTIVE. PT. CHANGED TO COMFORT CARE/DNR.
--- NOTE | 2021-09-13 17:23 | NUR ---
Joint visit with Primary RN, Dr Castillo, this PC RN, family, and Pt. Dr Castillo provides update, reviews current plan of care and discusses options including comfort care and hospice. Family educated on comfort care philosophy. Pt reports his wishes are for comfort care and hospice. Family is supportive of this decision and are in agreement. Therapeutic listening and questions answered. Placed order for comfort care, comfort care order set, D/C IV fluids, and continued maintenance medications per V/O from Dr Castillo. Hospice referral placed. Palliative Care will remain available.
--- NOTE | 2021-09-13 18:07 | NUR ---
Spirirual Care Visit (w/Pts. sister and niece) Encoutered the family in the 2nd floor hallway. Pts. sister informed me that both the pt. and family had decided to pursue hospice for pt. Listened empathetically and gave pastoral savings counselor to sister and niece. Sister verbalized gratitude for the concern and the spiritual care that she received.
--- NOTE | 2021-09-14 04:26 | NUR ---
patient on comfort care. patient alert and calling out frequently at beginning of the shift. Patient able to swallow all pills whole with water. No choking issues noted. patient requested popcicle and was able to eat about half. Turned patient at his request. patient slept through the middle of the shift. incontinent voiding in his attends. No acute problems ovenight.
--- NOTE | 2021-09-14 08:36 | NUR ---
PT CONSTANTLY CALLING OUT. PT REPOSITIONED AND ATTENDS CHANGED. SKIN CARE PROVIDED TO GROIN AREA DUE TO EXCORIATION. MEDICATION PROVIDED FOR AGITATION (SEE EMR).
[2021-09-14 09:11] LABS: LOG10 HIV-1 RNA 2.623 (.)
--- NOTE | 2021-09-14 10:37 | NUR ---
Comfort Care Visit Spoke with Primary RN Janeen and discussed case. Pt was experiencing significant agitation this AM. Seroquel offered with good effect. Pt resting in bed with his eyes closed. Pt apppears comfortable with no S/S of distress at this time. Pt left undisturbed at this time. Palliative Care will remain available.
--- NOTE | 2021-09-14 12:51 | NUR ---
ROUTINE MORNING MEDICATIONS HELD AT THIS TIME BECAUSE PATIENT IS SLEEPING COMFORTABLY FOR THE FIRST TIME IN HOURS. PHYSICIAN NOTIFIED.
--- NOTE | 2021-09-14 12:54 | NUR ---
PT GIVEN A BED BATH, REPOSITIONED, ATTENDS CHANGED, AND SKIN CARE PROVIDED. PT ALSO MEDICATED FOR AGITATION AT THIS TIME.
--- NOTE | 2021-09-14 15:12 | NUR ---
MOM AND SISTER TO BED SIDE, PIPE ORGAN TECHNICIAN NOTIFIED.
--- NOTE | 2021-09-14 15:29 | NUR ---
Spiritual Care Visit. Pt. is in bed, and has limited speech. Pts. mother and aunt are present and attending at bedside. Re-establish rapport with pts. mother. Mother displays evidence of stoic acceptance, while Pts. aunt is working hard to give pt. what he wants at bedside. Pt. is limited to ice chips, but this analyst competitive intelligence was able to verbally discern that the pt. was getting a "brain freeze" from the chips. Give pastoral milieu counselor to family. [place] for Pt. Pts. family verbalized gratitude for the spiritual care visit. Will remain available to the family, especially if pts. condition changes.
--- NOTE | 2021-09-14 18:22 | NUR ---
SHIFT SUMMARY PT ON COMFORT CARE. PT IS QUADRAPELEGIC AND REQUIRES HELP WITH FEEDING AND ALL ADLS. TURNED AND CHANGED Q2. JOSEPH CATHETER INSERTED BY PATIENT REQUEST FOR COMFORT AND TO PROTECT EXCORIATED SKIN ON HIS GROIN. FAMILY AT BEDSIDE. MEDICATED FOR PAIN X2 THIS SHIFT. PT TO DC TO [facility].
--- NOTE | 2021-09-15 04:45 | NUR ---
Patient on Comfort Care with no acute issues overnight. Patient able to drink pepsi from a cup and swallowed his HS medications whole. No choking noted. Patient repositioned for comfort overnight. Patient did not require PRN medications to achieve comfort up to this point in the shift. Sleeping the majority of the shift. Machuca care completed. Machuca patent with dk yellow output. Care plan updated to comfort care status.
--- NOTE | 2021-09-15 09:53 | NUR ---
FAN @ BEDSIDE FOR EXCESSIVE SWEATING, PT ENJOYING LISTENING TO MUSIC @ THIS TIME APPEARS COMFORTABLE IN BED
--- NOTE | 2021-09-15 12:33 | NUR ---
PT RESTING COMFORTABLY IN BED, CALLING OUT T/O SHIFT. PT DENIES PAIN, PLAN TO CONTINUE TO REPOSTION Q2H.
--- NOTE | 2021-09-15 14:32 | NUR ---
called by nursing pt having increased spasms. Notified physician and valium ordered for patient. updated pharmacy and nursing on pt needs will continuer to monitor closely.
--- NOTE | 2021-09-15 18:24 | NUR ---
Met with family to review his symptoms and condition. pt less tight but still some fexion and tightening. Concern he may not be able to swallow much longer. Review of medications with nursing gien IV, sublingual and rectal tor topical and IM to say on top of his symptoms.
--- NOTE | 2021-09-15 22:23 | NUR ---
patient calling out over and over. States his ass hurts. Repositioned to left side. Administered Roxanol and zyprexa per orders.
--- NOTE | 2021-09-16 04:19 | NUR ---
patient on comfort care. Calling out at beginning of shift. States his coccyx is sore. Turned multiple times for comfort overnight. Medications given, See JUL. Machuca catheter patent. Barrier cream and nystatin powder applied to genital area. patient able to drink water from a cup and took his HS medicatons whole. No acute issues over night.
--- NOTE | 2021-09-16 10:14 | NUR ---
PT RESTING COMFORTABLY IN BED
--- NOTE | 2021-09-16 10:15 | NUR ---
PT CALLING OUT, MEDICATED PER EMAR.
--- NOTE | 2021-09-16 22:07 | NUR ---
patient assessed. Sister and mother present. patient turned, Skin checked. No acute skin issues noted. Catheter care completed. Genitals red and peeling. Nystatin applied. patient drinking Dr. Gan and listening to music on his laptop.
--- NOTE | 2021-09-16 22:10 | NUR ---
patient repositioned .c/o buttock and penis pain. See MAR. Patient drinking water and Dr. Gan. Requested that I kill him. patient expressing desire to . Discussed his feeling. offered comfort.
--- NOTE | 2021-09-17 03:12 | NUR ---
Patient sleeping. Appears comfortable.
--- NOTE | 2021-09-17 04:31 | NUR ---
Patient sleeping quietly the majority of the night. Turned for comfort. No new concerns overnight. Awaiting placement with hospice
--- NOTE | 2021-09-17 08:40 | NUR ---
PT FOUND PULLING ON JOSEPH CATH, DOES NOT APPEAR TO BE DISLODGED, DRAINING TO GRAVITY. CATH CARE PROVIDED. PT YELLING OUT FOR HELP EVEN W/ STAFF @ BEDSIDE, PLAN TO MEDICATE PER EMAR FOR INCREASED ANXIETY.
--- NOTE | 2021-09-17 10:55 | NUR ---
Comfort care visit. Pt lying supine in bed. Machuca draining dk yellow urine. Pt crying out, reaching with contractured arms. He does not appear agitated and is sleeping most of the time. Reviewed assessment with pt's RN. Will cont daily visits for s/s assessment.
--- NOTE | 2021-09-17 10:56 | NUR ---
PT YELLING OUT, MEDICATED PER EMAR. MUSIC PLAYING IN ROOM, REPOSITIONED, ASSISTED PT W/ PHONE CALL TO MOTHER, PLAN TO BRING IN HOTDOG FROM [facility] THIS SHIFT. CALL LIGHT W/IN REACH, FAN ON PT FOR COMFORT.
--- NOTE | 2021-09-17 21:26 | NUR ---
PATIENT CONVERSIVE WITH FAMILY PRESENT. STATES HE HAS A HEADACHE AND HIS ANKLE HURTS. Visible spasms in right foot muscles. Valium given. Patient repositioned. Appears comfortable.
--- NOTE | 2021-09-17 23:10 | NUR ---
Patient repositioned with the help fo Jenny ORTEGA. patient given water and pepsi. Discussed his calling out for help with us standing at bedside. Explained that it is 2230 and other patients are sleeping. More water offered. patient swearing at staff. Telling me to . At this point I exited the room. At 2300 patient still yelling loudly. I reentered his room to reassess his pain. patient states his ankles hurt. I repositioned the pillow and offered more water. again discussed his calling out and asked if there was anything else i could do to make him more comfortable. Again patient swearing and telling me to . I asked patient to please lower his voice at which point he started yelling louder. I administered Zypexa for his agitation at that time. patient unhappy with this and told me he refused to have another shot. Will continue to monitor patient.
--- NOTE | 2021-09-18 00:56 | NUR ---
Patient sleeping comfortably
--- NOTE | 2021-09-18 04:26 | NUR ---
patient with comfort care orders. patient verbally abuse to both family and staff at the beginning of my shift. Discussed this as innapropriate with both the patient and his family. Family states that he has been the same for years and not to expect much change. I did explain to the patient that sexual remarks and swearing at the staff needd to stop. patient told me to and swore some more. Family left for the night. Patient repeatedly called out. Patient medicated for c/o pain in his neck, head and ankles. he was clearly having muscles spasms in his right foot and hand at the time. See MAR. patient continued to call out and make inappropriate comments to staff. patient medicated for agitation at that time. patient has been resting comfortably since around 0000. patient repositioned, water offered, and pericare given. No new skin issued noted overnight. patient able to drink water both from a straw and from he cup. He swallowed his meds without difficulty. patient waiting placement with hospice.
--- NOTE | 2021-09-18 12:20 | NUR ---
MORNING ASSESSMENT/PAIN: PATIENT REPORTS ANKLE, LEG AND BUTTOCK PAIN THIS MORNING AT VARIOUS TIMES. MEDICATED PER PRN MORPHINE. PATIENT YELLS OUT "HEY" OR "HELP" VERY FREQUENTLY, EVEN WITH STAFF IS IN THE ROOM AND AFTER THE MORPHINE. PATIENT'S BROW FURROWED. PATIENT HAD SOME TREMORS IN HIS RIGHT HAND AND REPORTED MUSCLE PAIN. MEDICATED FOR MUSCLE SPASMS. THIS ALLOWED PATIENT TO REST QUIETLY. FURROWED BROW STILL PRESENT. PATIENT TOLERATED BED BATH WELL, BUT WILL YELL OBSCENTITIES TO THE STAFF WITH PAINFUL MOVEMENTS. PATIENT EASILY DISTRACTED AND CALMED WITH VERBAL DISTRACTION.
--- NOTE | 2021-09-18 15:35 | NUR ---
PATIENT PAIN: PATIENT PAIN COMFORT CONTROLLED WITH PRN VALIUM THIS MORNING. MID AFTERNOON PATIENT WOKE WITH PAIN/DISCOMFORT. MEDICATED PER PRNS AND DISCUSSED WITH PALLIATIVE CARE RN JOSELITO. FAMILY AT BEDSIDE. THEY ARE SUPPORTIVE OF THE PATIENT AND WANT TO SEE HIM COMFORTABLE.
--- NOTE | 2021-09-18 16:08 | NUR ---
Comfort care visit - Three family members at bedside. They had brought in a radio for pt. Carter is crying out "Ouch" and moaning. RN had just been in the room and left to get pain medication as ordered per eMAR. Medications discussed with family and RN. Pt was able to get some solid sleep with Valium given this am but wakes painful despite 20 mg Roxanol given per eMAR.Discussed recent medication changes with pt's mom and bedside RN. RN identified that pt's current pain medications are not adeqately treating pt's pain despite getting some good sleep when valium is given. Pt still demonstrating some contractured muslce tension but it is improved since late last week. Mom confirms this. Pt does best when someone is in the room with him. We will ask our volunteers to spend time in the room when possible and when family is unavailable. No visiting hours restrictions reviewed with family and offered to set up accomodations in room for family member to stay the night if they would like. T/c to with report on my visit. VO obtained and entered for duragesic patch 25mcg applied now and q72hrs. Notified RN of new order and discussed placement for best absorption on any area pt may have some sq/fatty tissue under skin. Will reassess for s/s management in am.
--- NOTE | 2021-09-18 23:12 | NUR ---
CALLED HOSPITALIST PT YELLING OUT FREQUENTLY. AVAILABLE PRN ANXIETY MEDS GIVEN WITH NO RESULTS. PAIN MEDICATION GIVEN. NEW PRN ANXIETY MEDICATION ORDERED, SEE EMAR.
--- NOTE | 2021-09-19 00:06 | NUR ---
INTERVENTION SUCCESSFUL NEW PRN ANXIETY MED GIVEN. PT IS ASLEEP, BUT HE AWAKENED EASILY WHEN WE REPOSITIONED HIM. HE HAS STOPPED YELLING OUT. HE APPEARS MORE COMFORTABLE. FAMILY MEMBER IN ROOM HAS LEFT FOR THE NIGHT NOW THAT THE PT IS RESTING COMFORTABLY.
--- NOTE | 2021-09-19 04:25 | NUR ---
SHIFT SUMMARY ADMITTED FOR ACUTE KIDNEY FAILURE, RT. AND LFT. SIDED CVA'S . DNR CODE. ON COMFORT CARE. Q2 TURNS. JOSEPH IN PLACE FOR COMFORT. ATTENDS IN PLACE. CONFUSED. PT YELLING OUT FREQUENTLY BEGINNING OF SHIFT. HIGH FALL RISK. NEW PRN ANXIETY MEDS GIVEN EFFECTIVELY THIS SHIFT. PRN PAIN MEDS GIVEN THIS SHIFT. FAMILY WILL RETURN IN THE MORNING.
--- NOTE | 2021-09-19 10:34 | NUR ---
Comfort Care visit made earlier this am. Pt sleeping and appears more restful and comfortable than yesterday. RN states that new order for ativan in the night has been helpful in treating pt's anxiety and agitation. Pt's resp are even and sl labored. Machuca cath with dk yellow urine. Skin sl diaphoretic. He did not wake to voice or gentle touch. No family at bedside currently.
--- NOTE | 2021-09-19 10:40 | NUR ---
PATIENT SLEEPING. MEDICATED FOR PAIN PER EMAR.
--- NOTE | 2021-09-19 11:56 | NUR ---
PATIENT RECEIVED A BED BATH. WAS GROWLING IN PAIN WITH MILD SECRETIONS. MEDICATED PER EMAR.
--- NOTE | 2021-09-19 13:56 | NUR ---
PATIENT SLEEPING SOUNDLY. HAS INCREASED SECRETIONS. SCOPOLAMINE PATCH IN PLACE.
--- NOTE | 2021-09-19 16:49 | NUR ---
Spiritual Care Consult: referred by Dr. Anna Smith Spiritual Care attempted. Pt. is alone in room, is non-responsive and on "comfort care." This freelance digital project manager attempted to rouse the pt. Confirmed my availability to Pt. and family to Pts. nurse Johnson.
--- NOTE | 2021-09-19 18:22 | NUR ---
SHIFT SUMMARY: PATIENT ON COMFORT CARE. HE HAS BEEN SLEEPING MOST OF THE DAY COMFORTABLY. 2 DOSES OF MORPHINE GIVEN FOR PAIN MEASURES. PATIENT HAS A RASH ON HIS NECK, CHEST, AND EARS WITH IT STILL SPREADING. HYDROCORTISONE CREAM WAS PUT ON THE RASH THROUGHOUT THE DAY BUT CONTINUED TO SPREAD AND GET WORSE. DOCTOR WAS INFORMED AND ORDERED IV BENEDRYL THAT WAS GIVEN AT 1758. FAMILY IS IN THE ROOM WITH HIM AND CONCERNED ABOUT HIS RASH. WILL CONTINUE TO ASSESS. PATIENT HAD A FEVER OF 102.6 TAKEN ORALLY. HE WAS GIVEN A TYLENOL SUPPOSITORY WHICH BROUGHT HIS TEMP BACK DOWN TO 99.2. ORAL CARE AND BED BATH HAVE BEEN PROVIDED. BED IN LOWEST POSITION. BED ALARM ON.
--- NOTE | 2021-09-19 21:22 | NUR ---
Medicated PT with 20 mg roxinol 20 mg sl & atropine GTT for secretions, oral baclofen for spasms. Family present at bedside & supportive. lyles patent, not taking orals.
--- NOTE | 2021-09-19 22:56 | NUR ---
Had medicated PT for pain & spasm with mild helpful effect & PT still indicating pain so medicated with 20 mg sl roxinol & 2 mg of IV ativan with more effect but PT still calling out so pt had 5 mg od zyprexa prior to cares. This finally had a calming effect & PT resting quietly with Family at bedside.
--- NOTE | 2021-09-20 06:42 | NUR ---
PT rouseabdoulaye while 2 staff repositioning & cares this AM. Slept well appeared comfortable on current prns . oral suction this AM
--- NOTE | 2021-09-20 14:11 | NUR ---
Spiritual Care Visit. Pt. is mostly non-responsive. Family members are present. Family is unsettled by the audible discomfort of the pt. Listen empathetically. Re-establish rapport, and Discuss matters of maverick and belief. The pt. had once felt "God was mad at him." Prayed for pt. and family verbalized the desire to have me return as much as I can.
--- NOTE | 2021-09-20 18:32 | NUR ---
SHIFT SUMMARY PT IS FINALLY RESTING COMFORTABLE. TEDDY AND NURSE WORKED TOGETHER TODAY TO ESTABLISH A PAIN REGIMEN THAT WILL WORK AND KEEP HIM COMFORTABLE. NURSE DETERMINED THAT PTS ZYPREXA ANDD ATIVAN NEED TO BE GIVEN TOGETHER AT THE SAME TIME, ROXANOL SHOULD BE GIVEN 20 MG EVERY HOUR AND BACLOFEN GIVEN ON SCHEDULE IN ORDER FOR THE PT TO BE ABLE TO REST COMFORTABLY. RASH WAS SWABBED AND CULTURED TODAY BY DERMATOLOGY CINSULT WITH DR MUNOZ, SHE IS UNDER THE IMPRESSION THAT IT MAY BE SHINGLES, BUT WILL KNOW MORE WITH CULTURE RESULTS. UNTIL THEN PT HAS BEEN GIVEN ORAL CRUSHED ABX AND BEING KEPT COOL, DRY AND TURNED TO PREVENT RASH FROM SPREADING. PT FAMILY MEMBERS WILL BE SPENDING THE NIGHT WITH PT HE IS ABLE TO FIND MORE COMFORT WHEN SOMEONE IS IN THE ROOM WITH HIM. WILL CONTINUE TO MONITOR.
--- NOTE | 2021-09-20 20:07 | NUR ---
Mother Kaylynn at bedside supportive, PT appears comfortable sleeping. Machuca cath patent drains dark christophe urine. Started on oral abx earlier for body rash.
--- NOTE | 2021-09-20 23:28 | NUR ---
PT had dermatology consult & MD orders antivirals & antibiotics for disseminated draining rash. Culturs pending on rash also rule out MRSA swab done by MD. Contacted urgent care nurse practitioner Lou about placement in airborn precautions for draining rash. PT is immunocomp with hep C HIV & on comfort measures with PT unable to swallow normally. he has been getting sl meds & req oral sx for secretions. Order for airborne precautions will be entered & PT moved to a AB room. PT has family at bedside frequently & they have been instructed to wear masks. Will discuss with Charge what other measures need to taken.
--- NOTE | 2021-09-21 01:09 | NUR ---
PT on comfort care with new dx of disimminated shingles putting in airborne isolation & discussed with significant other airborn droplet isolation. Report to Eneida ORTEGA for room 332 for airborne isolation.
--- NOTE | 2021-09-21 01:46 | NUR ---
0136: pt arrived in 332. sleeping. unresponsive. significant other at bedside. lyles in placed. pt on airborne precaution due to shingles. scattered rash noted. call light within reach for pt's significant other. report was recieved from lindy fuentes rn at 0115. will continue to monitor pt.
--- NOTE | 2021-09-21 05:54 | NUR ---
SUMMARY NO ACUTE CHANGES SINCE PT WAS TRANSFERED TO ROOM 332. PT HAS INTERMITTENT APNEIC EPISODES. UNRESPONSIVE. HAS BEEN SLEEPING T/O THE SHIFT. SIGNIFICANT OTHER AT BEDSIDE. SUCTION AND REPOSITIONED DONE. COMFORT MEASURES MEDICATED WITH ROXANOL 20MG ONCE. JOSEPH IN PLACED, STILL PRODUCING URINE. CALL LIGHT WITHIN REACH. WILL CONTINUE TO MONITOR AND WILL PROVIDE REPORT TO ONCOMING NNURSE.
--- NOTE | 2021-09-21 14:50 | NUR ---
PATIENT HAS BEEN COMFORTABLE. FAMILY STATES HE IS NOT HAVING ANY MUSCLE SPASMS OR FACIAL GRIMACING. HE HAS BEEN DIAPHORETIC. WILL CONTINUE TO MONITOR.
--- NOTE | 2021-09-21 18:13 | NUR ---
SHIFT SUMMARY: PATIENT ON COMFORT CARE. FAMILY HAS BEEN IN FOR MOST OF THE DAY TO LOOK OVER HIM AND HELP WITH HIS CARE. STILL AWAITING THE RESULTS FOR THE RASH AND BLOTCHES ON HIS BODY. HE WAS DOSED ONCE WITH MORPHINE WHEN HE WAS GRIMACING IN PAIN. HE WAS ALSO GIVEN A DOSE OF ATIVAN SHORTLY AFTER. CATHETER WAS LEAKING BUT IT SEEMED TO BE FIXED WITH SALINE. CALL LIGHT WITHIN REACH. WILL CONTINUE TO MONITOR.
--- NOTE | 2021-09-22 04:57 | NUR ---
PATIENTS FAMILY UPSET AT SHIFT CHANGE DUE TO LACK OF PAIN MEDICATION GIVEN TO PATIENT. PT FAMILY REQUESTING SCHEDULED PAIN MEDICATION REGARDLESS OF SEDATION ASSESSMENT. PT WAS AWAKE AND VISIBLY PAINFUL. FAMILY EDUCATED ON COMFORT CARE ORDERS AND WAS ABLE TO WORK WITH PATIENT AND FAMILY OVER NIGHT TO GET PAIN UNDER CONTROL AND KEEP PATIENT COMFORTABLE.
--- NOTE | 2021-09-22 12:26 | NUR ---
COMFORT CARE FAMILY AT BEDSIDE STATING PATIENT IS MOANING. PATIENT MEDICATED FOR PAIN AND SECRETIONS. BED BATH AND JOSEPH CARE COMPLETED.
--- NOTE | 2021-09-22 18:25 | NUR ---
SHIFT SUMMARY PATIENT ON COMFORT CARE. FAMILY AT BEDSIDE MOST OF SHIFT. FAMILY REQUESTED PATIENT TO BE MEDICATED MULTIPLE TIMES T/O SHIFT. PATIENT MEDICATED FOR AIRHUNGER, ANXIETY, FEVER, AND EXCESS SECRETIONS. PATIENT HAS LABORED SLOW GURGLY BREATH SOUNDS WITH TIMES OF APNEA. REPOSITIONED NEEDED. BED BATH AND CATHETER CARE DONE. PATIENT UNABLE TO EAT OR DRINK. MOUTH SWABBED T/O SHIFT. PATIENT IS NOT OPENING EYES OR RESPONDING TO STIMULI. WILL CONTINUE TO MONITOR.
--- NOTE | 2021-09-23 04:38 | NUR ---
PT COMFORTABLE THROUGH THE NIGHT WITH FAMILY AT BEDSIDE. PT IS NONRESPONSIVE TO VERBAL STIMULI BUT CONTINUES TO SUCK MEDICATION THROUGH SYRINGE WITH MINIMAL GRIMICING. BREATHING PATTERN IS IRREGULAR WITH FREQUENT PAUSES.
--- NOTE | 2021-09-23 18:14 | NUR ---
Pt is lying down, eyes closed, breathing is non-labored. Pt appears to be medicated appropriately for pain, no grimace or other non-verbal indicator of pain noted. Plan to re-eval/assess pt again tomorrow.
--- NOTE | 2021-09-23 19:16 | NUR ---
SHIFT SUMMARY PATIENT ON COMFORT CARE. FAMILY AT BEDSIDE T/O SHIFT. MEDICATED PER FAMILY REQUEST MULTIPLE TIMES T/O SHIFT. PATIENT DOES NOT OPEN HIS EYES OR RESPOND AND IS NOT EATING OR DRINKING. JOSEPH CATHETER PRESENT AND DRAINNG TO GRAVITY. CATH CARE COMPLETED. WILL CONTINUE TO MONITOR.
--- NOTE | 2021-09-24 04:18 | NUR ---
SHIFT SUMMARY PT COMFORT ASSESSED T/O SHIFT. PT SISTER REMAINS AT BEDSIDE T/O THE SHIFT AND IS ATTENTIVE TO PT AND HIS NEEDS. FAMILY DECLINES THAT WE REPOSITION PT, THEY STATE THAT IT CAUSES TOO MUCH DISCOMFORT FOR HIM. PT MEDICATED FOR PAIN PER EMAR. PT FAMILY ALSO NOTIFIES US WHEN PT IS NEEDING SOMETHING FOR PAIN, FAMILY HAS BEEN EDUCATED ON NONVERBAL INDICATORS OF PAIN. PT FAMILY REPORTS THAT HE HAS MOANED SOME OFF AND ON. PT IS MOSTLY NONRESPONSIVE BUT WILL MOVE JAW WHEN RECEIVING ROXANOL. 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 DURING MOST OF MY ROUNDS PT APPEARS COMFORTABLE AND RESTING WITH PAIN WELL CONTROLLED PER MAR. FAMILY DENIES NEEDS WHEN ASKED. COMFORT CARE CART IN ROOM, ASKED FAMILY IF THEY NEEDED ANYTHING ELSE ON THEIR CART AND THEY DECLINED. PT REMAINS ON AIRBORNE PRECAUTIONS PENDING SHINGLES RESULTS. NO ACUTE CHANGES TO REPORT OVERNIGHT. BED IN LOWEST POSITION, CALL LIGHT WITHIN REACH.
--- NOTE | 2021-09-24 17:24 | NUR ---
Pt being assumed positive for shingles, and after speaking to Dr. Rizzo and pt's sister at bedside, received v/o for scheduled roxanol and lorazepam. Pt is no longer responsive, but does continue to grimace, and family verbalizes relief for scheduled medication. Initially, CLIENT DEVELOPMENT DIRECTOR was being placed, but pt's previous IV occluded, with no other visible site. Family at bedside vocalize preference for oral pain and anxiety medication. RN aware, v/u.
--- NOTE | 2021-09-24 18:30 | NUR ---
PATIENT TIME OF 1800. FAMILY AT BEDSIDE AT TIME OF . CHARGE NURSE NOTIFED AND CONFIRMED. DOCTOR NOTIFED AT 1815.
--- NOTE | 2021-09-24 18:38 | NUR ---
MORPHINE DRIP WASTED WITH CHARGE NURSE DAMASO.
--- NOTE | 2021-09-24 19:59 | NUR ---
09/24/211944 Discharge update: Transporter from [facility] arrived at the [facility] nurses station to corn picker the patient from rm [id number]. Hospital staff had not yet called the mortuary because the family had stated they needed some time to decide what they wanted to do. Sister of the patient, Lou, then met us outside of the room of the patient and wanted to know why we had called for a mortuary when they had not picked one yet. Reprecentative of the mortuary was able to tell the sister, Lou, how he was dispatched and was able to inform her of who had called the mortuary. The neice of the patient, Lou's daughter, Fernanda had called the mortuary. Sister states that all belongings they wanted have been removed from the room. Body was released to [facility] at 1944.
[2021-09-26 20:06] LABS: HSV-1 DNA Negative (Negative); HSV-2 DNA Negative (Negative)
== END 2021-09-24 18:00 | DRG 682 ==
LOC: ER 10:56 → PCU 14:17 → MEDS 14:17 → PCU 16:05 → MEDS 08-31 16:41 → PCU 08-31 23:07 → MEDS 09-04 14:41
PROVIDERS: Dermatology; Family Medicine; Hospitalist; Internal Medicine; Student in an Organized Health Care Education/Training Program; ADMIT Family Medicine
PROC: 00JU3ZZ Inspection of Spinal Canal, Percutaneous Approach (ICD-10-PCS; principal; 2021-08-30)
PROC: HZ2ZZZZ Detoxification Services for Substance Abuse Treatment (ICD-10-PCS; 2021-08-30)
DX: N17.9 Acute kidney failure, unspecified (principal); G93.41 Metabolic encephalopathy; I63.9 Cerebral infarction, unspecified; B20 Human immunodeficiency virus [HIV] disease; B01.9 Varicella without complication; I69.354 Hemiplegia and hemiparesis following cerebral infarction affecting left non-dominant side; R45.851 Suicidal ideations; F05 Delirium due to known physiological condition; E87.0 Hyperosmolality and hypernatremia; F15.23 Other stimulant dependence with withdrawal; D68.59 Other primary thrombophilia; G81.91 Hemiplegia, unspecified affecting right dominant side; F22 Delusional disorders; E87.6 Hypokalemia; E83.39 Other disorders of phosphorus metabolism; Z51.5 Encounter for palliative care; I12.9 Hypertensive chronic kidney disease with stage 1 through stage 4 chronic kidney disease, or unspecified chronic kidney disease; B19.20 Unspecified viral hepatitis C without hepatic coma; B36.9 Superficial mycosis, unspecified; K59.00 Constipation, unspecified; D63.1 Anemia in chronic kidney disease; F41.8 Other specified anxiety disorders; F17.210 Nicotine dependence, cigarettes, uncomplicated; R32 Unspecified urinary incontinence; N18.9 Chronic kidney disease, unspecified; Z86.718 Personal history of other venous thrombosis and embolism; Z98.890 Other specified postprocedural states; Z88.0 Allergy status to penicillin; Z79.899 Other long term (current) drug therapy
CPT/HCPCS: 36415; 70470; 70553; 71045; 72156; 80048; 80053; 80069; 81001; 81240; 82140; 82550; 82553; 82947; 83605; 83615; 83735; 84100; 84295; 84439; 84443; 84484; 84550; 85014; 85018; 85025; 85303; 85306; 85307; 85610; 85651; 85730; 86140; 86141; 86361; 87040; 87070; 87077; 87086; 87186; 87205; 87536; 92526; 92610; 93005; 93010; 93306; 96374; 97110; 97112; 97162; 97166; 97530; 99285-25; A9270; A9579; G0480; J0133; J0360; J1200; J1650; J2060; J2185; J2270; J2405; J3360; J3370; J3411; J3475; J3480; J7030; J7040; J7042; J7060; J7120; Q9967